=== PATIENT | female | born 1955 | race Hispanic/Latino ===

== ENCOUNTER → 2018-10-20 | Outpatient (CLI) | payer OTHER ==
--- NOTE | 2018-10-20 11:34 | Diagnostic Imaging Report ---
Exam: Pelvic ultrasound - non OB. History: Recurrent UTI. Comparison: None. Findings: Transabdominal sonographic evaluation of the pelvis. The patient is status post hysterectomy. The bilateral ovaries are not visualized. No mass is seen in bilateral adnexa. The bladder is unremarkable in appearance. Bilateral ureteral jets are seen. The prevoid volume is 27.7 cc and the post void residual volume is 0 cc. Impression: Unremarkable sonographic appearance of the bladder. Status post hysterectomy. Signed by: Dr. Era Colindres MD on 10/20/2018 11:30 AM
== END ==
LOC: US 09:15
PROVIDERS: ATTEND Urology
DX: N39.0 Urinary tract infection, site not specified (principal)
CPT/HCPCS: 76856

== ENCOUNTER 2019-04-26 13:24 | Observation (INO) | payer OTHER ==
[~2019-04-26] VITALS: Ht 158.8 cm; Wt 70.3 kg
[~2019-04-26 13:24] MED LIST: ATIVAN1 MG PO; BACLOFEN10 MG PO; FENTANYL1 EAC1 TOP; GABAPENTIN400 MG PO; HYDRALAZINE HCL25 MG PO; ISOSORBIDE MONO20 MG PO; JANUVIA100 MG PO; JARDIANCE PO; METOPROLOL SUCC50 MG PO; NIFEDIPINE10 MG PO; NORCO 10-325 T1 EACH PO; PLAVIX75 MG PO; RENEXA PO; TOUJEO SQ; TRINTELLEX PO
--- OUTSIDE RECORDS SUMMARY | 2019-04-26 13:27 | XMS REPORT ---
Author Author Admin, [place] Organization [facility] Address [address] [place] [address] Phone Allergies, Adverse Reactions, Alerts Allergy Name Reaction Description Start Date Severity Status Provider GORDON NECTAR SOB Critical Active Zayra Shannon D.O. LISINOPRIL (LISINOPRIL TABS) throat swells up and cough Critical Active Zayra Shannon D.O. 12 HOUR NASAL DECONGESTANT Rapid heartbeat Critical Active Zayra Shannon D.O. ANTIHISTAMINES Fast heart beat, trouble breathing 1998 Critical Active Darell Allen MD Conditions or Problems Problem Name Problem Code Onset Date Status Entry Date Provider Comment Standard Description Annotate Arm pain, right 729.5 Active Zayra Damon.O. Pain in limb Knee pain, right, acute 719.46 Active Zayra Damon.O. Pain in joint involving lower leg Hiatal hernia 553.3 Active Zayra Damon.O. Diaphragmatic hernia without mention of obstruction or gangrene Flu 487.1 Active Darell Allen MD Influenza with other respiratory manifestations Hemoccult positive stool 578.1 Active Zayra Daomn.O. Blood in stool Somatic dysfunction, abdomen/other 739.9 Active Zayra Damon.O. Nonallopathic lesions of abdomen and other sites, not elsewhere classified Somatic dysfunction, cranial 739.0 Active Zayra Damon.O. Nonallopathic lesions of head region, not elsewhere classified Somatic dysfunction, spine, thoracic 739.2 Active Zayra Shannon D.O. Nonallopathic lesions of thoracic region, not elsewhere classified Urinary frequency 788.41 Active Zayra Shannon D.O. Urinary frequency Urinary hesitancy 788.64 Active Zayra Shannon D.O. Urinary hesitancy Abdominal pain, generalized 789.07 Active Zayra Shannon D.O. Abdominal pain, generalized Colon cancer screening V76.51 Active Zayra Shannon D.O. Screening for malignant neoplasms of colon Dysuria 788.1 Active Zayra Shannon D.O. Dysuria Cough 786.2 Active Darell Allen MD Cough Overweight Active Darell Allen MD Overweight Sinusitis 473.9 Active Darell Allen MD Unspecified sinusitis (chronic) Pharyngitis, acute 462 Active Zayra Shannon D.O. Acute pharyngitis Screening, colon cancer V76.51 Active Zayra Shannon D.O. Screening for malignant neoplasms of colon Viral syndrome 079.99 Active Zayra Shannon D.O. Unspecified viral infection Dysuria 788.1 Active Cecily Guerra [employer] COVER CEMENTER Dysuria Somatic dysfunction, spine, sacral 739.4 Active Zayra Shannon D.O. Nonallopathic lesions of sacral region, not elsewhere classified Cough 786.2 Active Zayra Shannon D.O. Cough Muscle spasm of back 724.8 Active Zayra Shannon D.O. Other symptoms referable to back Somatic dysfunction, lower extremity 739.6 Active Zayra aDmon.O. Nonallopathic lesions of lower extremities, not elsewhere classified Somatic dysfunction, pelvic 739.5 Active Zayra Damon.O. Nonallopathic lesions of pelvic region, not elsewhere classified Somatic dysfunction, spine, lumbar 739.3 Active Zayra Damon.O. Nonallopathic lesions of lumbar region, not elsewhere classified BMI 28.0-28.9 V85.24 Active Zayra Damon.O. Body Mass Index 28.0-28.9, adult Headache 784.0 Active Darell Allen MD Headache Osteoarthritis, knees, bilateral 715.96 Active Zayra Damon.O. Osteoarthrosis, unspecified whether generalized or localized, involving lower leg Gastroparesis diabeticorum 250.60 Active Zayra Damon.O. Diabetes mellitus with neurological manifestations, type II or unspecified type, not stated as uncontrolled Glaucoma 365.9 Active Zayra Damon.O. Unspecified glaucoma ALLERGIC RHINITIS 477.9 Active Zayra Damon.O. Allergic rhinitis, cause unspecified Angina, chronic 413.9 Active Zayra Damon.O. Other and unspecified angina pectoris At risk for falls V15.88 Active Zayra Damon.O. Personal history of fall has frequent falls from bed, especially when has nightmares Meralgia paresthetica, left leg 355.1 Active Zayra Damon.O. Meralgia paresthetica on gabapentin; this will help for this also Memory loss 780.93 Active Zayra Damon.O. Memory loss Depression 311 Active Neeraj Reed TECHNOLOGY ADMINISTRATOR Depressive disorder, not elsewhere classified CHRONIC BACK PAIN 724.5 Active Zayra Shannon D.O. Backache, unspecified CLAUDICATION, INTERMITTENT 443.9 Active Zayra Shannon D.O. 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 Acquired absence of both cervix and uterus DIABETIC NEUROPATHY 250.60 Active Zayra MooreO. Diabetes mellitus with neurological manifestations, type II or unspecified type, not stated as uncontrolled PULMONARY NODULE 518.89 Active Zayra Damon.O. Other diseases of lung, not elsewhere classified 6 mm nodule Left CVA area CAROTIDYNIA 337.9 Active Darell Allen MD Unspecified disorder of autonomic nervous system FATIGUE 780.79 Active Zayra Shannon D.O. Other malaise and fatigue GERD 530.81 Active Zayra Damon.John. Esophageal reflux ANXIETY 300.00 Active Zayra Shannon D.O. Anxiety state, unspecified DIABETES MELLITUS, TYPE II, WITH COMPLICATIONS 250.80 Active Zayra Damon.O. Diabetes mellitus with other specified manifestations, type II or unspecified type, not stated as uncontrolled History of CVA 434.91 Active Zayra Shannon D.O. Cerebral artery occlusion, unspecified, with cerebral infarction aug 2012, left face numb, was on plavix, seen in [facility] for that, balance problems with left leg HYPERTENSION 401.1 Active Zayra Damon.O. Benign essential hypertension DIABETES MELLITUS 250.00 Correction Zayra Carranzaie D.O. Diabetes mellitus without mention of complication, type II or unspecified type, not stated as uncontrolled Folliculitis ICD-704.8 Inactive Zayra Wise Ehdaie D.O. Neck pain ICD-723.1 Inactive Zayra Troydaie D.O. Muscle spasm of bilateral lower legs ICD-728.85 Inactive Zayra Wise Ehdaie D.O. Fatigue ICD-780.79 Inactive Zayra Wise Ehdaie D.O. Pharyngitis, acute ICD-462 Inactive Zayra Wise Ehdaie D.O. Neck pain 723.1 Inactive Zayra Wise Woodrowdaie D.O. Cervicalgia Neck pain ICD-723.1 Inactive Zayra Wise Ehdaie D.O. PND ICD-786.09 Inactive Zayra Wise Ehdaie D.O. Otitis externa, acute, right ICD-380.12 Inactive Zayra Troydaie D.O. Sinus pain ICD-478.19 Inactive Zayra Troydaie D.O. Laryngitis ICD-464.00 Inactive Zayra Wise Ehdaie D.O. Otitis externa, acute, left ICD-380.12 Inactive Zayra Wise Ehdaie D.O. Pharyngitis, acute ICD-462 Inactive Zayra Troydaie D.O. Screening, colon cancer ICD-V76.51 Inactive Zayra Wise Ehdaie D.O. Bronchitis, acute ICD-466.0 Inactive Zayra Wise Ehdaie D.O. Folliculitis ICD-704.8 Inactive Zayra Wise Ehdaie D.O. Viral pharyngitis ICD-462 Inactive Zayra Wise Ehdaie D.O. Somatic dysfunction, cranial ICD-739.0 Inactive Zayra Wise Ehdaie D.O. Somatic dysfunction, spine, cervical ICD-739.1 Inactive Zayra Troydaie D.O. Somatic dysfunction, upper extremity ICD-739.7 Inactive Zayra Wise Ehdaie D.O. Back pain, lumbar ICD-724.2 Inactive Zayra Wise Ehdaie D.O. Ecchymoses ICD-782.9 Inactive Zayra Wise Ehdaie D.O. Preventive health care ICD-V70.0 Inactive Zayra Wise Ehdaie D.O. BMI 29.0-29.9 Inactive Zayra Wise Ehdaie D.O. Otitis externa, left ICD-380.10 Inactive Zayra Wise Ehdaie D.O. Bronchitis, acute ICD-466.0 Inactive Zayra Wise Ehdaie D.O. Diarrheal stools ICD-787.91 Inactive Zayra Wise Ehdaie D.O. Screening, colon cancer ICD-V76.51 Inactive Zayra Wise Ehdaie D.O. Gastroenteritis, viral ICD-008.8 Inactive Zayra Wise Ehdaie D.O. Viral URI ICD-465.9 Inactive Zayra Wise Ehdaie D.O. Acute lower urinary tract infection ICD-599.0 Inactive Zayra Wise Ehdaie D.O. SOMATIC DYSFUNCTION, LOWER EXTREMITY ICD-739.6 Inactive Zayra Wise Ehdaie D.O. SOMATIC DYSFUNCTION, PELVIC ICD-739.5 Inactive Zayra Wise Ehdaie D.O. SOMATIC DYSFUNCTION, SPINE, LUMBAR ICD-739.3 Inactive Zayra Wise Ehdaie D.O. SOMATIC DYSFUNCTION, SPINE, SACRAL ICD-739.4 Inactive Zayra Wise Ehdaie D.O. CELLULITIS AND ABSCESS OF OTHER SPECIFIED SITE ICD-682.8 Inactive Zayra Billie Ehdaie D.O. HEMATURIA ICD-599.70 Inactive Zayra Wise Ehdaie D.O. LYMPHADENOPATHY ICD-785.6 Inactive Zayra Wise Ehdaie D.O. PHARYNGITIS ICD-462 Inactive Zayra Wise Ehdaie D.O. SCIATICA ICD-724.3 Inactive Zayra Wise Ehdaie D.O. SCREENING, COLON CANCER V76.51 Inactive Zayra M Ehdaie D.O. Screening for malignant neoplasms of colon SCREENING, COLON CANCER ICD-V76.51 Inactive Kevin Ordoñez MD SPECIAL SCREENING EXAMINATION OTH SPEC VIRAL DZ ICD-V73.89 Inactive Zayra Wise Ehdaie D.O. THRUSH ICD-112.0 Inactive Zayra Wise Ehdaie D.O. ANGINA, STABLE ICD-413.9 Inactive Zayra Wise Ehdaie D.O. NEED PROPHYLACTIC VACCINATION&INOCULATION FLU ICD-V04.81 Inactive Zayra Wise Ehdaie D.O. ALLERGIC RHINITIS ICD-477.9 Inactive Zayra Wise Ehdaie D.O. CHEST PAIN ICD-786.50 Inactive Zayra Wise Ehdaie D.O. SOMATIC DYSFUNCTION, ABDOMEN/OTHER ICD-739.9 Inactive Zayra Wise Ehdaie D.O. NECK PAIN, CHRONIC ICD-723.1 Inactive Zayra Wise Ehdaie D.O. CERVICAL DISC DISEASE ICD-722.4 Inactive Zayra Wise Ehdaie D.O. CERVICAL RADICULOPATHY ICD-723.4 Inactive Zayra Wise Ehdaie D.O. LYMPHADENITIS, CERVICAL ICD-683 Inactive Zayra Wise Ehdaie D.O. OVERWEIGHT ICD-278.02 Inactive Zayra Wise Ehdaie D.O. CVA ICD-436 Inactive Zayra Wise Ehdaie D.O. FATIGUE ICD-780.79 Inactive Zayra Wise Ehdaie D.O. FINGER PAIN ICD-729.5 Inactive Zayra Wise Ehdaie D.O. MUSCLE SPASM, BACK ICD-724.8 Inactive Zayra Wise Ehdaie D.O. SOMATIC DYSFUNCTION, SPINE, THORACIC ICD-739.2 Inactive Zayra Wise Ehdaie D.O. VIRAL SYNDROME ICD-079.89 Inactive Zayra Wise Ehdaie D.O. NEED PROPHYLACTIC VACCINATION&INOCULATION FLU ICD-V04.81 Inactive Zayra Wise Ehdaie D.O. SHINGLES ICD-053.9 Inactive Zayra Wise Woodrowdaie D.O. GLAUCOMA ICD-365.9 Inactive Zayra Wise Ehdaie D.O. OTHER SCREENING MAMMOGRAM ICD-V76.12 Inactive Zayra Wise Ehdaie D.O. BACK PAIN ICD-724.5 Inactive Zayra Wise Ehdaie D.O. PALPITATIONS ICD-785.1 Inactive Zayra Wise Ehdaie D.O. ABDOMINAL PAIN ICD-789.00 Inactive Zayra Wise Ehdaie D.O. CHEST WALL PAIN ICD-786.52 Inactive Zayra Wise Ehdaie D.O. Folliculitis 704.8 Resolved Zayra Wise Ehdaie D.O. Other specified diseases of hair and hair follicles Neck pain 723.1 Resolved Zayra Wise Woodrowdaie D.O. Cervicalgia Muscle spasm of bilateral lower legs 728.85 Resolved Zayra Shannon D.O. Spasm of muscle more right buttock Fatigue 780.79 Resolved Zayra Shannon D.O. Other malaise and fatigue Pharyngitis, acute 462 Resolved Zayra Shannon D.O. Acute pharyngitis PND 786.09 Resolved Zayra Shannon D.O. Other dyspnea and respiratory abnormality Otitis externa, acute, right 380.12 Resolved Zayra Shannon D.O. Acute swimmers' ear Sinus pain 478.19 Resolved Zayra Shannon D.O. Other disease of nasal cavity and sinuses Laryngitis 464.00 Resolved Zayra Shannon D.O. Acute laryngitis without mention of obstruction Otitis externa, acute, left 380.12 Resolved Zayra Shannon D.O. Acute swimmers' ear Pharyngitis, acute 462 Resolved Zayra Shannon D.O. Acute pharyngitis Screening, colon cancer V76.51 Resolved Zayra Shannon D.O. Screening for malignant neoplasms of colon Bronchitis, acute 466.0 Resolved Zayra Shannon D.O. Acute bronchitis Folliculitis 704.8 Resolved Zayra Shannon D.O. Other specified diseases of hair and hair follicles Viral pharyngitis 462 Resolved Zayra Troydaluc D.O. Acute pharyngitis Somatic dysfunction, cranial 739.0 Resolved Zayra Shannon D.O. Nonallopathic lesions of head region, not elsewhere classified Somatic dysfunction, spine, cervical 739.1 Resolved Zayra Shannon D.O. Nonallopathic lesions of cervical region, not elsewhere classified Somatic dysfunction, upper extremity 739.7 Resolved Zayra Shannon D.O. Nonallopathic lesions of upper extremities, not elsewhere classified Back pain, lumbar 724.2 Resolved Zayra Shannon D.O. Lumbago Ecchymoses 782.9 Resolved Zayra Shannon D.O. Other symptoms involving skin and integumentary tissues Preventive health care V70.0 Resolved Zayra Shannon D.O. Routine general medical examination at a health care facility BMI 29.0-29.9 Resolved Zayra Shannon D.O. Body Mass Index 29.0-29.9, adult Otitis externa, left 380.10 Resolved Zayra Damon.O. Infective otitis externa, unspecified Bronchitis, acute 466.0 Resolved Zayra Damon.O. Acute bronchitis Diarrheal stools 787.91 Resolved Zayra Shannon D.O. Diarrhea Screening, colon cancer V76.51 Resolved Zayra Shannon D.O. Screening for malignant neoplasms of colon Gastroenteritis, viral 008.8 Resolved Zayra Shannon D.O. Intestinal infection due to other organism, not elsewhere classified Viral URI 465.9 Resolved Zayra Shannon D.O. Acute upper respiratory infections of unspecified site Acute lower urinary tract infection 599.0 Resolved Zayra Shannon D.O. Urinary tract infection, site not specified SOMATIC DYSFUNCTION, LOWER EXTREMITY 739.6 Resolved Zayra Shannon D.O. Nonallopathic lesions of lower extremities, not elsewhere classified SOMATIC DYSFUNCTION, PELVIC 739.5 Resolved Zayra Shannon D.O. Nonallopathic lesions of pelvic region, not elsewhere classified SOMATIC DYSFUNCTION, SPINE, LUMBAR 739.3 Resolved Zayra Shannon D.O. Nonallopathic lesions of lumbar region, not elsewhere classified SOMATIC DYSFUNCTION, SPINE, SACRAL 739.4 Resolved Zayra Shannon D.O. Nonallopathic lesions of sacral region, not elsewhere classified CELLULITIS AND ABSCESS OF OTHER SPECIFIED SITE 682.8 Resolved Zayra Shannon D.O. Cellulitis and abscess of other specified sites labia majora HEMATURIA 599.70 Resolved Zayra Shannon D.O. Hematuria, unspecified LYMPHADENOPATHY 785.6 Resolved Zayra Shannon D.O. Enlargement of lymph nodes left pre-auricular PHARYNGITIS 462 Resolved Zayra Shannon D.O. Acute pharyngitis SCIATICA 724.3 Resolved Zayra Shannon D.O. Sciatica SPECIAL SCREENING EXAMINATION OTH SPEC VIRAL DZ V73.89 Resolved Zayra Shannon D.O. Screening examination for other specified viral diseases THRUSH 112.0 Resolved Zayra Shannon D.O. Candidiasis of mouth left tonsil area pain and throat redness, (had 2 months of nasonex, not currently) ANGINA, STABLE 413.9 Resolved Zayra Shannon D.O. Other and unspecified angina pectoris NEED PROPHYLACTIC VACCINATION&INOCULATION FLU V04.81 Resolved Zayra Shannon D.O. Need for prophylactic vaccination and inoculation against influenza ALLERGIC RHINITIS 477.9 Resolved Zayra Shannon D.O. Allergic rhinitis, cause unspecified CHEST PAIN 786.50 Resolved Zayra Shannon D.O. Unspecified chest pain SOMATIC DYSFUNCTION, ABDOMEN/OTHER 739.9 Resolved Zayra Damon.O. Nonallopathic lesions of abdomen and other sites, not elsewhere classified NECK PAIN, CHRONIC 723.1 Resolved Zayra Damon.O. Cervicalgia Question of CERVICAL DISC DISEASE Resolved Zyara Damon.O. Degeneration of cervical intervertebral disc Question of CERVICAL RADICULOPATHY Resolved Zayra Shannon D.O. Brachial neuritis or radiculitis NOS LYMPHADENITIS, CERVICAL 683 Resolved Zayra Damon.O. Acute lymphadenitis OVERWEIGHT 278.02 Resolved Zayra Damon.O. Overweight CVA 436 Resolved Zayra Damon.O. Acute, but ill- defined, cerebrovascular disease FATIGUE 780.79 Resolved Zayra Shannon D.O. Other malaise and fatigue FINGER PAIN 729.5 Resolved Zayra Damon.O. Pain in limb MUSCLE SPASM, BACK 724.8 Resolved Zayra Damon.O. Other symptoms referable to back SOMATIC DYSFUNCTION, SPINE, THORACIC 739.2 Resolved Zayra Damon.O. Nonallopathic lesions of thoracic region, not elsewhere classified VIRAL SYNDROME 079.89 Resolved Zayra Shannon D.O. Other specified viral infection NEED PROPHYLACTIC VACCINATION&INOCULATION FLU V04.81 Resolved Zayra Damon.O. Need for prophylactic vaccination and inoculation against influenza SHINGLES 053.9 Resolved Zayra Shannon D.O. Herpes zoster without mention of complication GLAUCOMA 365.9 Resolved Zayra Shannon D.O. Unspecified glaucoma left eye and starting in right eye; heredtary optic nerve disease; Dr. Schwab opthamologist in [place], saw her in May 2013 OTHER SCREENING MAMMOGRAM V76.12 Resolved Zayra Shannon D.O. Other screening mammogram BACK PAIN 724.5 Resolved Zayra Shannon D.O. Backache, unspecified PALPITATIONS 785.1 Resolved Zayra Shannon D.O. Palpitations ABDOMINAL PAIN 789.00 Resolved Zayra Shannon D.O. Abdominal pain, unspecified site CHEST WALL PAIN 786.52 Resolved Zayra Shannon D.O. Painful respiration Medication List Medication Instructions Start Date Stop Date Generic Name NDC Status Provider Patient Instruction HYDRALAZINE HCL 25 MG ORAL TABLET 1 By Mouth tid HYDRALAZINE HCL 54925005269 Active Zayra Shannon D.O. Active TESSALON PERLES 100 MG ORAL CAPSULE 1 by mouth 3 times a day as needed for cough BENZONATATE 84681677402 Active Darell Allen MD Active CHERATUSSIN AC 100-10 MG/5ML ORAL SYRUP 2 teaspoons (10mL) by mouth every 12 hours as needed for cough GUAIFENESIN-CODEINE 38069132425 Active Darell Allen MD Active LUMIFY 0.025 % OPHTHALMIC SOLUTION 1 drop in each eye daily for pressure BRIMONIDINE TARTRATE 51328342913 Active Salena Chandler MedAdherence CYLINDER WORKER Active CONTOUR NEXT TEST STRIP CHECK FASTING SUGAR DAILY ; ALSO CHECK SUGAR 2 HRS. AFTER LUNCH AND DINNER GLUCOSE BLOOD 18390266286 Active Maricruz Arambula MedAdherence NEWSPAPER MANAGER Active NIFEDIPINE ER 60 MG ORAL TABLET EXTENDED RELEASE 24 HOUR 1 By Mouth Every day NIFEDIPINE 35993440622 Active Zayra Shannon D.O. Active MUPIROCIN 2 % EXTERNAL OINTMENT apply to bumps twice daily MUPIROCIN 24660213772 Active Zayra Shannon D.O. Active LANCETS check fasting sugar daily; also check sugar 2 hours after lunch and dinner LANCETS 85548740048 Active Zayra Damon.O. Active BACLOFEN 10 MG ORAL TABLET one tablet by mouth three times a day as needed for muscle spasm BACLOFEN 57747775583 Active Zayra Damon.O. Active FENTANYL 25 MCG/HR TRANSDERMAL PATCH 72 HOUR APPLY ONE PATCH UTD Q 72 H FOR CHRONIC PAIN FENTANYL 48548359858 Active Zayra Shannon D.O. Active HYDROCODONE-ACETAMINOPHEN 10-325 MG ORAL TABLET 1 By Mouth Every 4-6 hours as needed for pain HYDROCODONE-ACETAMINOPHEN 65265386023 Active Zayra Shannon D.O. Active TRINTELLIX 20 MG ORAL TABLET 1 By Mouth Every day VORTIOXETINE HBR 59117823748 Active Zayra Shannon D.O. Active CULTURELLE DIGESTIVE HEALTH ORAL CAPSULE 1 By Mouth daily LACTOBACILLUS-INULIN 52596804221 Active Zayra Shannon D.O. Active FLONASE ALLERGY RELIEF 50 MCG/ACT NASAL SUSPENSION 2 sprays each nostril every day FLUTICASONE PROPIONATE 76177439469 Active Zayra Shannon D.O. Active TRAVATAN Z 0.004 % OPHTHALMIC SOLUTION 1 drop per eye at bedtime TRAVOPROST 51138548472 Active Salena Chandler [facility] CYLINDER WORKER Active LIDOCAINE VISCOUS 2 % MOUTH/THROAT SOLUTION 15 mL gargled no more frequently than every 3 hours LIDOCAINE HCL 91863037756 Active Wanda Horn MD Active HOME STYLE BED RAILS please send a set of bedrails out MISC. DEVICES 63978263947 Active Zayra Shannon D.O. Active RANEXA 500 MG ORAL TABLET EXTENDED RELEASE 12 HOUR 1 By Mouth bid RANOLAZINE 40812537391 Active Zayra Shannon D.O. Active VENTOLIN HFA 108 (90 Base) MCG/ACT INHALATION AEROSOL SOLUTION 2 puffs every 4 - 6 hours as needed ALBUTEROL SULFATE 72835037882 Active Zayra Shannon D.O. Active GABAPENTIN 800 MG ORAL TABLET 1 By Mouth tid GABAPENTIN 59755750329 Active Zayra Shannon D.O. Active TOUKEVINO SOLOSTAR 300 UNIT/ML SUBCUTANEOUS SOLUTION PEN-INJECTOR 56 units sq Every hs INSULIN GLARGINE 06317547757 Active Zayra Damon.Kathrine Active METOPROLOL TARTRATE 50 MG ORAL TABLET 1 by mouth twice a day METOPROLOL TARTRATE 73810922899 Active Zayra Damon.O. Active PLAVIX 75 MG ORAL TABLET 1 by mouth every day CLOPIDOGREL BISULFATE 53498566029 Active Zayra Damon.Kathrine Active ISOSORBIDE MONONITRATE ER 60 MG ORAL TABLET EXTENDED RELEASE 24 HOUR Take 1 tablet By Mouth daily ISOSORBIDE MONONITRATE 25984848431 Active Zayra Damon.Kathrine Active LIPITOR 40 MG ORAL TABLET 1 by mouth every pm ATORVASTATIN CALCIUM 43674335279 Active Zayra Damon.John. Active CLOPIDOGREL BISULFATE 75 MG ORAL TABLET one By Mouth Every day CLOPIDOGREL BISULFATE 70701803313 Active Zayra Damon.Kathrine Active ATIVAN 1 MG ORAL TABLET 1 By Mouth as needed LORAZEPAM 30463932881 Active Zayra Damon.Kathrine Active BENZTROPINE MESYLATE 0.5 MG ORAL TABLET 1 By Mouth Every day BENZTROPINE MESYLATE 0.5 MG ORAL TABLET 194217 BENZTROPINE MESYLATE Inactive PROTONIX 40 MG ORAL TABLET DELAYED RELEASE 1 by mouth twice a day PROTONIX 40 MG ORAL TABLET DELAYED RELEASE 725218 PANTOPRAZOLE SODIUM Inactive AUGMENTIN 875-125 MG ORAL TABLET 1 by mouth twice a day AUGMENTIN 875-125 MG ORAL TABLET AMOXICILLIN-POT CLAVULANATE Inactive TAMIFLU 75 MG ORAL CAPSULE 1 By Mouth Twice a Day x 5 days TAMIFLU 75 MG ORAL CAPSULE 670157 OSELTAMIVIR PHOSPHATE Inactive BACTRIM DS 800-160 MG ORAL TABLET 1 tab by mouth twice a day BACTRIM DS 800-160 MG ORAL TABLET 189844 TRIMETHOPRIM-SULFAMETHOXAZOLE Inactive PYRIDIUM 100 MG ORAL TABLET 1 by mouth 3 times a day as needed PYRIDIUM 100 MG ORAL TABLET 0518833 PHENAZOPYRIDINE HCL Inactive TESSALON PERLES 100 MG ORAL CAPSULE 1 by mouth 3 times a day as needed for cough TESSALON PERLES 100 MG ORAL CAPSULE 556033 BENZONATATE Inactive TRINTELLIX 5 MG ORAL TABLET 1 By Mouth Every day TRINTELLIX 5 MG ORAL TABLET VORTIOXETINE HBR Inactive CHOLESTYRAMINE POWDER 4 grams By Mouth Twice a Day CHOLESTYRAMINE POWDER 67714283763 CHOLESTYRAMINE Inactive METHOCARBAMOL 750 MG ORAL TABLET 1 by mouth every 8 hours as needed METHOCARBAMOL 750 MG ORAL TABLET 148928 METHOCARBAMOL Inactive PENICILLIN V POTASSIUM 500 MG ORAL TABLET 1 By Mouth three times a day x 10 days PENICILLIN V POTASSIUM 500 MG ORAL TABLET 379163 PENICILLIN V POTASSIUM Inactive LORATADINE 10 MG ORAL TABLET 1 By Mouth once a day as needed for allergies LORATADINE 10 MG ORAL TABLET 197159 LORATADINE Inactive PREDNISONE 20 MG ORAL TABLET 1 By Mouth daily PREDNISONE 20 MG ORAL TABLET 581151 PREDNISONE Inactive TYLENOL WITH CODEINE #3 300-30 MG ORAL TABLET 1 By Mouth Twice a Day As Needed pain TYLENOL WITH CODEINE #3 300-30 MG ORAL TABLET ACETAMINOPHEN-CODEINE Inactive VOLTAREN 1 % TRANSDERMAL GEL apply twice per day VOLTAREN 1 % TRANSDERMAL GEL 488234 DICLOFENAC SODIUM Inactive AUGMENTIN 875-125 MG ORAL TABLET 1 by mouth twice a day AUGMENTIN 875-125 MG ORAL TABLET AMOXICILLIN-POT CLAVULANATE Inactive [id number] 1 % OTIC SOLUTION 1 drops in affected ear Three Times a Day [id number] 1 % OTIC SOLUTION 949633 GHETSBIC-UBDJRRKMS-HC Inactive BENTYL 10 MG ORAL CAPSULE 1 by mouth 4 times a day as needed BENTYL 10 MG ORAL CAPSULE DICYCLOMINE HCL Inactive NASONEX 50 MCG/ACT NASAL SUSPENSION 2 sprays each nostril every day NASONEX 50 MCG/ACT NASAL SUSPENSION 1569716 MOMETASONE FUROATE Inactive COUGH SYRUP 100 MG/5ML ORAL SYRUP Take 10mL every 4-6 hours as needed for cough COUGH SYRUP 100 MG/5ML ORAL SYRUP 631872 GUAIFENESIN Inactive PROMETHAZINE HCL 6.25 MG/5ML ORAL SYRUP Take 10mL every 4-6 hours as needed PROMETHAZINE HCL 6.25 MG/5ML ORAL SYRUP 367836 PROMETHAZINE HCL Inactive BACTROBAN 2 % EXTERNAL OINTMENT apply twice per day to affected area BACTROBAN 2 % EXTERNAL OINTMENT MUPIROCIN Inactive BABATUNDE CONTOUR NEXT MONITOR w/Device KIT use to check blood sugar Three Times a Day BABATUNDE CONTOUR NEXT MONITOR w/Device KIT BLOOD GLUCOSE MONITORING SUPPL Inactive ANTIPYRINE-BENZOCAINE 5.4-1.4 % OTIC SOLUTION 2-4 drops in the affected ear Three Times a Day As Needed for pain ANTIPYRINE-BENZOCAINE 5.4- 1.4 % OTIC SOLUTION ANTIPYRINE-BENZOCAINE Inactive CIPRO HC 0.2-1 % OTIC SUSPENSION 3 drops tothe left ear Every 12 hours for 7 days CIPRO HC 0.2-1 % OTIC SUSPENSION CIPROFLOXACIN-HYDROCORTISONE Inactive CEFDINIR 300 MG ORAL CAPSULE 1 by mouth Q 12 HOURS CEFDINIR 300 MG ORAL CAPSULE 539027 CEFDINIR Inactive JANUVIA 50 MG ORAL TABLET 1 By Mouth once a day JANUVIA 50 MG ORAL TABLET SITAGLIPTIN PHOSPHATE Inactive CIPRO 500 MG ORAL TABLET 1 by mouth twice a x 7 days CIPRO 500 MG ORAL TABLET 590266 CIPROFLOXACIN HCL Inactive BACTRIM DS 800-160 MG ORAL TABLET 1 tab by mouth twice a day for 7 days for infection BACTRIM DS 800-160 MG ORAL TABLET 588581 TRIMETHOPRIM-SULFAMETHOXAZOLE Inactive MELOXICAM 7.5 MG ORAL TABLET 1 pill by mouth As needed for back pain MELOXICAM 7.5 MG ORAL TABLET 242992 MELOXICAM Inactive NOVOLOG FLEXPEN 100 UNIT/ML SUBCUTANEOUS SOLUTION PEN-INJECTOR 20 units SQ with each meal NOVOLOG FLEXPEN 100 UNIT/ML SUBCUTANEOUS SOLUTION PEN-INJECTOR INSULIN ASPART Inactive LISINOPRIL 20 MG ORAL TABLET 2 pill by mouth Daily LISINOPRIL 20 MG ORAL TABLET 684247 LISINOPRIL Inactive NYSTATIN 685900 UNIT/ML MOUTH/THROAT SUSPENSION 2 mls Three Times a Day swish and spit NYSTATIN 531512 UNIT/ML MOUTH/THROAT SUSPENSION 176609 NYSTATIN Inactive ACARBOSE 50 MG ORAL TABLET one By Mouth Three Times a Day ACARBOSE 50 MG ORAL TABLET 366841 ACARBOSE Inactive NORCO 10-325 MG ORAL TABLET 1 By Mouth TID As Needed pain NORCO 10-325 MG ORAL TABLET 443705 HYDROCODONE-ACETAMINOPHEN Inactive NASONEX 50 MCG/ACT NASAL SUSPENSION 2 sprays each nostril every day NASONEX 50 MCG/ACT NASAL SUSPENSION 8759045 MOMETASONE FUROATE Inactive CYCLOBENZAPRINE HCL 10 MG ORAL TABLET take 1 tablet By Mouth Three Times a Day as needed CYCLOBENZAPRINE HCL 10 MG ORAL TABLET 556458 CYCLOBENZAPRINE HCL Inactive ASPIRIN 81 MG ORAL TABLET take 1 By Mouth daily 30 ASPIRIN 81 MG ORAL TABLET ASPIRIN Inactive INDOMETHACIN 50 MG ORAL CAPSULE take 1 By Mouth Three Times a Day As Needed pain INDOMETHACIN 50 MG ORAL CAPSULE 829327 INDOMETHACIN Inactive KEFLEX 500 MG ORAL CAPSULE take 1 By Mouth Twice a Day for 7 days. KEFLEX 500 MG ORAL CAPSULE 073298 CEPHALEXIN Inactive PRAVACHOL 20 MG ORAL TABLET take 1 By Mouth daily PRAVACHOL 20 MG ORAL TABLET 163447 PRAVASTATIN SODIUM Inactive HYDROCHLOROTHIAZIDE 12.5 MG ORAL CAPSULE 1 by mouth every day HYDROCHLOROTHIAZIDE 12.5 MG ORAL CAPSULE 298457 HYDROCHLOROTHIAZIDE Inactive BACLOFEN 10 MG ORAL TABLET one tablet by mouth three times a day as needed for muscle spasm BACLOFEN 10 MG ORAL TABLET 089644 BACLOFEN Inactive BUSPIRONE HCL 15 MG ORAL TABLET 1 by mouth twice a day BUSPIRONE HCL 15 MG ORAL TABLET 721364 BUSPIRONE HCL Inactive PREVACID 30 MG ORAL CAPSULE DELAYED RELEASE 1 by mouth every day PREVACID 30 MG ORAL CAPSULE DELAYED RELEASE 720707 LANSOPRAZOLE Inactive ZITHROMAX 250 MG ORAL TABLET 2 by mouth now, then 1 by mouth every day for 4 more days ZITHROMAX 250 MG ORAL TABLET 162383 AZITHROMYCIN Inactive ACYCLOVIR 800 MG ORAL TABLET 1 by mouth five times a day x 7 days ACYCLOVIR 800 MG ORAL TABLET 980050 ACYCLOVIR Inactive ISOSORBIDE MONONITRATE 10 MG ORAL TABLET 1 By Mouth Every hs ISOSORBIDE MONONITRATE 10 MG ORAL TABLET 647178 ISOSORBIDE MONONITRATE Inactive PAXIL CR 25 MG ORAL TABLET EXTENDED RELEASE 24 HOUR 1 By Mouth Every day PAXIL CR 25 MG ORAL TABLET EXTENDED RELEASE 24 HOUR PAROXETINE HCL Inactive METFORMIN HCL 1000 MG ORAL TABLET 1 by mouth twice a day METFORMIN HCL 1000 MG ORAL TABLET 869411 METFORMIN HCL Inactive LORTAB 5-500 MG ORAL TABLET LORTAB 5-500 MG ORAL TABLET HYDROCODONE-ACETAMINOPHEN Inactive PAXIL 30 MG ORAL TABLET TK 1 T PO QAM PAXIL 30 MG ORAL TABLET 9029047 PAROXETINE HCL Inactive BENZTROPINE MESYLATE 0.5 MG ORAL TABLET 1 By Mouth Every day BENZTROPINE MESYLATE 33166435129 No Longer Active Zayra Shannon D.O. Active PROTONIX 40 MG ORAL TABLET DELAYED RELEASE 1 by mouth twice a day PANTOPRAZOLE SODIUM 47692713026 No Longer Active Zayra Shannon D.O. Active AUGMENTIN 875-125 MG ORAL TABLET 1 by mouth twice a day AMOXICILLIN-POT CLAVULANATE 70771310406 No Longer Active Zayra Shannon D.O. Active TAMIFLU 75 MG ORAL CAPSULE 1 By Mouth Twice a Day x 5 days OSELTAMIVIR PHOSPHATE 31885660459 No Longer Active Zayra Shannon D.O. Active BACTRIM DS 800-160 MG ORAL TABLET 1 tab by mouth twice a day TRIMETHOPRIM-SULFAMETHOXAZOLE 85600259469 No Longer Active Zayra Shannon D.O. Active PYRIDIUM 100 MG ORAL TABLET 1 by mouth 3 times a day as needed PHENAZOPYRIDINE HCL 98112685163 No Longer Active Zayra Damon.O. Active TESSALON PERLES 100 MG ORAL CAPSULE 1 by mouth 3 times a day as needed for cough BENZONATATE 78766419208 No Longer Active Zayra Shannon D.O. Active LUMIFY 1 drop in each eye daily for pressure LUMIFY No Longer Active Zayra Shannon D.O. Active TRINTELLIX 5 MG ORAL TABLET 1 By Mouth Every day VORTIOXETINE HBR 32245833569 No Longer Active Zayra Shannon D.O. Active CHOLESTYRAMINE POWDER 4 grams By Mouth Twice a Day CHOLESTYRAMINE 17303167866 No Longer Active Zayra Shannon D.O. Active WELCHOL 625 MG ORAL TABLET 3 tabs By Mouth twice a day with food COLESEVELAM HCL 47414521596 No Longer Active Zayra Troydaluc D.O. Active METHOCARBAMOL 750 MG ORAL TABLET 1 by mouth every 8 hours as needed METHOCARBAMOL 42581583645 No Longer Active Zayra Billie Troydaie D.O. Active PENICILLIN V POTASSIUM 500 MG ORAL TABLET 1 By Mouth three times a day x 10 days PENICILLIN V POTASSIUM 55263730776 No Longer Active Zayra Billie Troydaie D.O. Active LORATADINE 10 MG ORAL TABLET 1 By Mouth once a day as needed for allergies LORATADINE 76102868058 No Longer Active Zayra Shannon D.O. Active PREDNISONE 20 MG ORAL TABLET 1 By Mouth daily PREDNISONE 97123657946 No Longer Active Zayra Troydaie D.O. Active TYLENOL WITH CODEINE #3 300-30 MG ORAL TABLET 1 By Mouth Twice a Day As Needed pain ACETAMINOPHEN-CODEINE 67865934808 No Longer Active Zayra Troydaie D.O. Active VOLTAREN 1 % TRANSDERMAL GEL apply twice per day DICLOFENAC SODIUM 84349317190 No Longer Active Zayra Troydaie D.O. Active AUGMENTIN 875-125 MG ORAL TABLET 1 by mouth twice a day AMOXICILLIN-POT CLAVULANATE 77310784383 No Longer Active Zayra Troydaluc D.O. Active [id number] 1 % OTIC SOLUTION 1 drops in affected ear Three Times a Day [id number] 41698745158 No Longer Active Zayra Troydaie D.O. Active BENTYL 10 MG ORAL CAPSULE 1 by mouth 4 times a day as needed DICYCLOMINE HCL 52738455759 No Longer Active Zayra Billie Troydaie D.O. Active NASONEX 50 MCG/ACT NASAL SUSPENSION 2 sprays each nostril every day MOMETASONE FUROATE 86732941151 No Longer Active Zayra M Ehdaie D.O. Active COUGH SYRUP 100 MG/5ML ORAL SYRUP Take 10mL every 4-6 hours as needed for cough GUAIFENESIN 75075665385 No Longer Active Zayra Damon.Kathrine Active PROMETHAZINE HCL 6.25 MG/5ML ORAL SYRUP Take 10mL every 4-6 hours as needed PROMETHAZINE HCL 68594112796 No Longer Active Zayra Shannon D.O. Active BACTROBAN 2 % EXTERNAL OINTMENT apply twice per day to affected area MUPIROCIN 77821324941 No Longer Active Zayra Shannon D.O. Active 2080 Media NEXT MONITOR w/Device KIT use to check blood sugar Three Times a Day BLOOD GLUCOSE MONITORING SUPPL 69726458145 No Longer Active Zayra Shannon D.O. Active ANTIPYRINE-BENZOCAINE 5.4-1.4 % OTIC SOLUTION 2-4 drops in the affected ear Three Times a Day As Needed for pain ANTIPYRINE-BENZOCAINE 29870923810 No Longer Active Wanda Horn MD Active CIPRO HC 0.2-1 % OTIC SUSPENSION 3 drops tothe left ear Every 12 hours for 7 days CIPROFLOXACIN-HYDROCORTISONE 04512888040 No Longer Active Azucena Harden MD Active CEFDINIR 300 MG ORAL CAPSULE 1 by mouth Q 12 HOURS CEFDINIR 96677885875 No Longer Active Wanda Horn MD Active JANUVIA 50 MG ORAL TABLET 1 By Mouth once a day SITAGLIPTIN PHOSPHATE 22579598854 No Longer Active Zayra Damon.Kathrine Active CIPRO 500 MG ORAL TABLET 1 by mouth twice a x 7 days CIPROFLOXACIN HCL 70578418003 No Longer Active Zayra Damon.OJay Active BACTRIM DS 800-160 MG ORAL TABLET 1 tab by mouth twice a day for 7 days for infection TRIMETHOPRIM-SULFAMETHOXAZOLE 00317829197 No Longer Active Tanna Parekh MD Active MELOXICAM 7.5 MG ORAL TABLET 1 pill by mouth As needed for back pain MELOXICAM 47208914325 No Longer Active Zayra Shannon D.O. Active NOVOLOG FLEXPEN 100 UNIT/ML SUBCUTANEOUS SOLUTION PEN-INJECTOR 20 units SQ with each meal INSULIN ASPART 90196723741 No Longer Active Zayra Shannon D.O. Active LISINOPRIL 20 MG ORAL TABLET 2 pill by mouth Daily LISINOPRIL 90586508677 No Longer Active Zayra Damon.O. Active NYSTATIN 403861 UNIT/ML MOUTH/THROAT SUSPENSION 2 mls Three Times a Day swish and spit NYSTATIN 21090580076 No Longer Active Zayra Shannon D.O. Active ACARBOSE 50 MG ORAL TABLET one By Mouth Three Times a Day ACARBOSE 95337251847 No Longer Active Zayra Shannon D.O. Active NORCO 10-325 MG ORAL TABLET 1 By Mouth TID As Needed pain HYDROCODONE-ACETAMINOPHEN 95180695454 No Longer Active Zayra Shannon D.O. Active NASONEX 50 MCG/ACT NASAL SUSPENSION 2 sprays each nostril every day MOMETASONE FUROATE 07998206720 No Longer Active Zayra Damon.O. Active CYCLOBENZAPRINE HCL 10 MG ORAL TABLET take 1 tablet By Mouth Three Times a Day as needed CYCLOBENZAPRINE HCL 67027915377 No Longer Active Zayra Damon.O. Active ASPIRIN 81 MG ORAL TABLET take 1 By Mouth daily 30 ASPIRIN 22635989411 No Longer Active Zayra Shannon D.O. Active INDOMETHACIN 50 MG ORAL CAPSULE take 1 By Mouth Three Times a Day As Needed pain INDOMETHACIN 10546971776 No Longer Active Zayra Shannon D.O. Active KEFLEX 500 MG ORAL CAPSULE take 1 By Mouth Twice a Day for 7 days. CEPHALEXIN 10985227771 No Longer Active Jorge L Ramos DO Active PRAVACHOL 20 MG ORAL TABLET take 1 By Mouth daily PRAVASTATIN SODIUM 52050235010 No Longer Active Zayra Shannon D.O. Active HYDROCHLOROTHIAZIDE 12.5 MG ORAL CAPSULE 1 by mouth every day HYDROCHLOROTHIAZIDE 75809613844 No Longer Active Zayra Shannon D.O. Active BACLOFEN 10 MG ORAL TABLET one tablet by mouth three times a day as needed for muscle spasm BACLOFEN 34575958921 No Longer Active Zayra Shannon D.O. Active BUSPIRONE HCL 15 MG ORAL TABLET 1 by mouth twice a day BUSPIRONE HCL 07222338563 No Longer Active Zayra Shannon D.O. Active PREVACID 30 MG ORAL CAPSULE DELAYED RELEASE 1 by mouth every day LANSOPRAZOLE 41995553958 No Longer Active Zayra Shannon D.O. Active ZITHROMAX 250 MG ORAL TABLET 2 by mouth now, then 1 by mouth every day for 4 more days AZITHROMYCIN 31317337735 No Longer Active Zayra Shannon D.O. Active ACYCLOVIR 800 MG ORAL TABLET 1 by mouth five times a day x 7 days ACYCLOVIR 03160711900 No Longer Active Zayra Troydaluc D.O. Active ISOSORBIDE MONONITRATE 10 MG ORAL TABLET 1 By Mouth Every hs ISOSORBIDE MONONITRATE 71150229805 No Longer Active Nolvia Toney MD Active PAXIL CR 25 MG ORAL TABLET EXTENDED RELEASE 24 HOUR 1 By Mouth Every day PAROXETINE HCL 98755226225 No Longer Active Zayra Shannon D.O. Active METFORMIN HCL 1000 MG ORAL TABLET 1 by mouth twice a day METFORMIN HCL 18043683625 No Longer Active Zayra Shannon D.O. Active LORTAB 5-500 MG ORAL TABLET HYDROCODONE-ACETAMINOPHEN 40956650866 No Longer Active Zayra Shannon D.O. Active PAXIL 30 MG ORAL TABLET TK 1 T PO QAM PAROXETINE HCL 42090551951 No Longer Active Zayra Shannon D.O. Active Immunizations Vaccine Administration Date Value Standard Description influenza immunization (Flu Vax) has been administered given influenza virus vaccine, unspecified formulation pneumococcal immunization administered given pneumococcal polysaccharide vaccine, 23 valent influenza immunization (Flu Vax) has been administered given influenza virus vaccine, unspecified formulation influenza immunization (Flu Vax) has been administered given influenza virus vaccine, unspecified formulation PEDIATRIC PNEUMOCOCCAL VACCINE ([id number]) #1 given pneumococcal conjugate vaccine, 13 valent influenza immunization (Flu Vax) has been administered given influenza virus vaccine, unspecified formulation influenza immunization (Flu Vax) has been administered given influenza virus vaccine, unspecified formulation Vital Signs Date Name Value Unit Range Description blood pressure, diastolic 70 mm[Hg] BP ellison blood pressure, systolic 119 mm[Hg] BP sys height E&M 62 [in_us] Bdy height pulse rate E&M 64 /min Heart rate respiratory rate E&M 24 /min Resp rate temperature E&M 99.2 [degF] Body temperature weight E&M 155.20 [lb_av] Weight Measured blood pressure, diastolic 81 mm[Hg] BP ellison blood pressure, systolic 136 mm[Hg] BP sys height E&M 62 [in_us] Bdy height pulse rate E&M 56 /min Heart rate respiratory rate E&M 18 /min Resp rate temperature E&M 98.1 [degF] Body temperature weight E&M 158.60 [lb_av] Weight Measured blood pressure, diastolic, second observation 78 mm[Hg] BP ellison blood pressure, diastolic 78 mm[Hg] BP ellison blood pressure, systolic, second observation 130 mm[Hg] BP sys blood pressure, systolic 130 mm[Hg] BP sys height E&M 62 [in_us] Bdy height pulse rate E&M 54 /min Heart rate respiratory rate E&M 12 /min Resp rate temperature E&M 97.9 [degF] Body temperature weight E&M 163 [lb_av] Weight Measured blood pressure, diastolic 84 mm[Hg] BP ellison blood pressure, systolic 149 mm[Hg] BP sys height E&M 62 [in_us] Bdy height pulse rate E&M 64 /min Heart rate respiratory rate E&M 18 /min Resp rate temperature E&M 97.8 [degF] Body temperature weight E&M 161.80 [lb_av] Weight Measured blood pressure, diastolic 82 mm[Hg] BP ellison blood pressure, systolic 152 mm[Hg] BP sys height E&M 62 [in_us] Bdy height pulse rate E&M 77 /min Heart rate respiratory rate E&M 17 /min Resp rate temperature E&M 100.2 [degF] Body temperature weight E&M 167.20 [lb_av] Weight Measured blood pressure, diastolic 71 mm[Hg] BP ellison blood pressure, systolic 113 mm[Hg] BP sys height E&M 62 [in_us] Bdy height pulse rate E&M 60 /min Heart rate respiratory rate E&M 17 /min Resp rate temperature E&M 98.3 [degF] Body temperature weight E&M 163 [lb_av] Weight Measured blood pressure, diastolic, second observation 87 mm[Hg] BP ellison blood pressure, diastolic 87 mm[Hg] BP ellison blood pressure, systolic, second observation 139 mm[Hg] BP sys blood pressure, systolic 139 mm[Hg] BP sys height E&M 62 [in_us] Bdy height pulse rate E&M 60 /min Heart rate respiratory rate E&M 16 /min Resp rate temperature E&M 98.1 [degF] Body temperature weight E&M 160.50 [lb_av] Weight Measured blood pressure, diastolic 66 mm[Hg] BP ellison blood pressure, systolic 107 mm[Hg] BP sys height E&M 62 [in_us] Bdy height pulse rate E&M 65 /min Heart rate respiratory rate E&M 16 /min Resp rate temperature E&M 98.2 [degF] Body temperature weight E&M 160.60 [lb_av] Weight Measured blood pressure, diastolic 95 mm[Hg] BP ellison blood pressure, systolic 182 mm[Hg] BP sys height E&M 62 [in_us] Bdy height pulse rate E&M 61 /min Heart rate respiratory rate E&M 20 /min Resp rate temperature E&M 98.8 [degF] Body temperature weight E&M 161 [lb_av] Weight Measured blood pressure, diastolic 75 mm[Hg] BP ellison blood pressure, systolic 141 mm[Hg] BP sys height E&M 62 [in_us] Bdy height pulse rate E&M 61 /min Heart rate respiratory rate E&M 16 /min Resp rate temperature E&M 97.7 [degF] Body temperature weight E&M 159 [lb_av] Weight Measured blood pressure, diastolic 96 mm[Hg] BP ellison blood pressure, systolic 155 mm[Hg] BP sys height E&M 62 [in_us] Bdy height pulse rate E&M 64 /min Heart rate respiratory rate E&M 18 /min Resp rate temperature E&M 98.4 [degF] Body temperature weight E&M 161 [lb_av] Weight Measured blood pressure, diastolic, second observation 89 mm[Hg] BP ellison blood pressure, diastolic 89 mm[Hg] BP ellison blood pressure, systolic, second observation 153 mm[Hg] BP sys blood pressure, systolic 153 mm[Hg] BP sys height E&M 62 [in_us] Bdy height pulse rate E&M 61 /min Heart rate respiratory rate E&M 16 /min Resp rate temperature E&M 98.4 [degF] Body temperature weight E&M 160 [lb_av] Weight Measured blood pressure, diastolic, second observation 59 mm[Hg] BP ellison blood pressure, diastolic 82 mm[Hg] BP ellison blood pressure, systolic, second observation 133 mm[Hg] BP sys blood pressure, systolic 143 mm[Hg] BP sys height E&M 62 [in_us] Bdy height pulse rate E&M 57 /min Heart rate respiratory rate E&M 16 /min Resp rate temperature E&M 98.1 [degF] Body temperature weight E&M 159.50 [lb_av] Weight Measured Diagnostic Results Date Name Value Unit Range Description Lab Report: UA/M w/rflx Culture, Routine, Microscopic Examination, UA/M ... - Urinalysis mucus on urinalysis Present Not Estab. Lab Report: TSH+Free T4, CBC With Differential/Platelet, Comp. Metabolic ... - Chemistry thyroid stimulating hormone, serum 1.240 u[iU]/mL 0.450-4.500 Lab Report: UA/M w/rflx Culture, Routine, Microscopic Examination, UA/M ... - Urinalysis WBC urine on microscopy 0-5 /hpf {Cells}/[HPF] 0 - 5 Lab Report: Anaerobic and Aerobic Culture, Result, Anaerobic and Aerobic ... - Chemistry Culture, Anaerobic Final report Lab Report: TSH+Free T4, CBC With Differential/Platelet, Comp. Metabolic ... - Chemistry very low density lipoproteins 40 mg/dL 5-40 Lab Report: UA/M w/rflx Culture, Routine, Microscopic Examination, UA/M ... - Urinalysis epithelial cells, urine 0-10 /[LPF] 0 - 10 Lab Report: TSH+Free T4, CBC With Differential/Platelet, Comp. Metabolic ... - Chemistry chloride, serum 102 mmol/L 96-106 Lab Report: CBC With Differential/Platelet, Comp. Metabolic Panel (14), ... - Chemistry triiodothyronine resin uptake 28 % 24-39 Lab Report: TSH+Free T4, CBC With Differential/Platelet, Comp. Metabolic ... - Chemistry urea nitrogen, blood 23 mg/dL 8-27 Lab Report: CBC With Differential/Platelet, Basic Metabolic Panel (8), P ... - Serology HIV-1/HIV-2 Ab, serum Non Reactive Non Reactive Office Visit: Acute Visit Rm5 - Urinalysis leukocyte esterase, urine, by dipstick negative Lab Report: TSH+Free T4, CBC With Differential/Platelet, Comp. Metabolic ... - Hematology mean corpuscular hemoglobin concentration, RBC 34.0 G/DL % 31.5-35.7 Office Visit: Acute Visit Rm5 - Urinalysis nitrite, urine, semiquantitative negative Lab Report: TSH+Free T4, CBC With Differential/Platelet, Comp. Metabolic ... - Hematology erythrocyte (RBC) count 4.54 X10E6/UL 10*6/mm3 3.77-5.28 Lab Report: CBC With Differential/Platelet, Basic Metabolic Panel (8), P ... - Serology hepatitis C antibody, serum <0.1 0.0-0.9 Office Visit: Acute Visit Rm5 - Urinalysis urine color yellow bilirubin, urine negative Lab Report: TSH+Free T4, CBC With Differential/Platelet, Comp. Metabolic ... - Chemistry Absolute Neutrophils 5.9 X10E3/UL 10*3/uL 1.4-7.0 Lab Report: CBC With Differential[facility]Platelet, [facility] erythrocyte sedimentation rate 4 mm/h 0-40 Lab Report: TSH+Free T4, CBC With Differential/Platelet, Comp. Metabolic ... - Chemistry LDL cholesterol, serum 98 mg/dL 0-99 urea nitrogen/creatinine ratio, serum 47 12-28 Internal Correspondence: Pre-Visit Planning - CC care steamer tender #1, name Azucena Babin Lab Report: TSH+Free T4, CBC With Differential/Platelet, Comp. Metabolic ... - Hematology mean corpuscular volume, RBC 94 fL 79-97 Lab Report: TSH+Free T4, CBC With Differential/Platelet, Comp. Metabolic ... - Chemistry HDL cholesterol, serum 39 mg/dL >39 Lab Report: TSH+Free T4, CBC With Differential/Platelet, Comp. Metabolic ... - Hematology monocytes as percent of blood leukocytes 7 % Lab Report: TSH+Free T4, CBC With Differential/Platelet, Comp. Metabolic ... - Chemistry creatinine, serum 0.49 mg/dL 0.57-1.00 albumin/globulin ratio, serum 1.5 1.2-2.2 cholesterol, serum 177 mg/dL 085-999 7383/08/07 creatinine, random, urine 90.0 mg/dL Not Estab. bilirubin, serum, total 0.6 mg/dL 0.0-1.2 Lab Report: TSH+Free T4, CBC With Differential/Platelet, Comp. Metabolic ... - Hematology Eosinophil Absolute Count 0.1 X10E3/UL 10*3/uL 0.0-0.4 Lab Report: H. pylori Stool Ag, EIA - Microbiology Helicobacter pylori antigen, stool Negative Negative Office Visit: Acute Visit Rm5 - Urinalysis appearance, urine clear blood in urine (hemoglobin) by dipstick negative Lab Report: TSH+Free T4, CBC With Differential/Platelet, Comp. Metabolic ... - Chemistry aspartate aminotransferase (SGOT), serum 16 U/L 0-40 Lab Report: TSH+Free T4, CBC With Differential/Platelet, Comp. Metabolic ... - Hematology red blood cell distribution width 13.8 % 12.3-15.4 Lab Report: UA/M w/rflx Culture, Routine, Microscopic Examination, UA/M ... - Urinalysis urinalysis, microscopic examination MICRON Office Visit: Acute Visit Rm5 - Urinalysis pH, urine, semiquantitative 5.0 Lab Report: TSH+Free T4, CBC With Differential/Platelet, Comp. Metabolic ... - Hematology leukocyte count, blood 8.3 X10E3/UL 10*3/mm3 3.4-10.8 Lab Report: TSH+Free T4, CBC With Differential/Platelet, Comp. Metabolic ... - Chemistry potassium, serum 4.1 mmol/L 3.5-5.2 albumin, serum 4.1 g/dL 3.6-4.8 immature granulocytes, percentage of total cells, blood 0 % Lab Report: TSH+Free T4, CBC With Differential/Platelet, Comp. Metabolic ... - Hematology lymphocyte count, blood, automated 1.7 X10E3/UL 10*3/mm3 0.7-3.1 hematocrit, blood 42.7 % 34.0-46.6 Lab Report: Urine Culture, Routine, Result - Urinalysis urine culture No growth Lab Report: TSH+Free T4, CBC With Differential/Platelet, Comp. Metabolic ... - Chemistry sodium, serum 143 mmol/L 134-144 Lab Report: TSH+Free T4, CBC With Differential/Platelet, Comp. Metabolic ... - Hematology neutrophils as percent of blood leukocytes 72 % Internal Correspondence: Pre-Visit Planning - Other List of providers caring for patient Dr. Shannon, Azucena Babin and Kaylen Neil Lab Report: TSH+Free T4, CBC With Differential/Platelet, Comp. Metabolic ... - Hematology basophils as percent of blood leukocytes 0 % Lab Report: UA/M w/rflx Culture, Routine, Microscopic Examination, UA/M ... - Chemistry specific gravity, body fluid 1.014 1.005-1.030 Office Visit: Acute Visit #6-[facility] - Serology influenza virus A antigen positive Office Visit: Acute Visit Rm5 - Urinalysis protein, urine, semiquantitative (dipstick) negative Lab Report: UA/M w/rflx Culture, Routine, Microscopic Examination, UA/M ... - Chemistry RBC, Urine 0-2 /hpf /[HPF] 0 - 2 Lab Report: UA/M w/rflx Culture, Routine, Microscopic Examination, UA/M ... - Microbiology microscopic exam See below: Lab Report: TSH+Free T4, CBC With Differential/Platelet, Comp. Metabolic ... - Chemistry carbon dioxide, venous blood 26 mmol/L 18-29 Lab Report: UA/M w/rflx Culture, Routine, Microscopic Examination, UA/M ... - Chemistry nitrate, urine Negative Negative Lab Report: TSH+Free T4, CBC With Differential/Platelet, Comp. Metabolic ... - Chemistry triglyceride, serum, fasting 201 mg/dL 0-149 calcium, serum 8.9 mg/dL 8.7-10.3 microalbumin/creatinine ratio, urine 12.9 MG/G CREAT ug/mg 0.0-30.0 alanine aminotransferase (SGPT), serum 25 U/L 0-32 Lab Report: CBC With Differential/Platelet, Comp. Metabolic Panel (14), ... - Chemistry free thyroxine index 1.3 1.2-4.9 Office Visit: Adult Followup Rachele Shannon 6 - Chemistry blood glucose, fasting 162 mg/dL Lab Report: TSH+Free T4, CBC With Differential/Platelet, Comp. Metabolic ... - Hematology mean corpuscular hemoglobin, RBC 31.9 pg 26.6-33.0 Office Visit: Acute Visit Rm5 - Urinalysis specific gravity, urine 1.015 Lab Report: UA/M w/rflx Culture, Routine, Microscopic Examination, UA/M ... - Urinalysis bacteria, urine microscopy None seen None seen/Few Lab Report: CBC With Differential/Platelet, Basic Metabolic Panel (8), P ... - Chemistry lipase, serum 14 U/L [iU]/L 0-59 Lab Report: TSH+Free T4, CBC With Differential/Platelet, Comp. Metabolic ... - Chemistry protein, total, serum 6.9 g/dL 6.0-8.5 alkaline phosphatase, serum 68 U/L 39-117 Office Visit: Acute Visit Dr. Shannon - Lab Microbial identification kit, rapid strep method negative Lab Report: TSH+Free T4, CBC With Differential/Platelet, Comp. Metabolic ... - Hematology hemoglobin, blood 14.5 g/dL 11.1-15.9 Office Visit: Adult Followup Dr Shiva White 6 - Chemistry blood glucose, 2 hours postprandial 129 mg/dL Lab Report: TSH+Free T4, CBC With Differential/Platelet, Comp. Metabolic ... - Hematology lymphocytes as percent of blood leukocytes 20 % Office Visit: Adult Followup Dr Shannon 7 - Chemistry hemoglobin A1C, blood, as % of total hemoglobin 7.9 % Office Visit: Acute Visit Rm5 - Urinalysis glucose, urine, semiquantitative negative Lab Report: TSH+Free T4, CBC With Differential/Platelet, Comp. Metabolic ... - Genetics/fertility eGFR if 122 mL/min/1.73m2 >59 Lab Report: TSH+Free T4, CBC With Differential/Platelet, Comp. Metabolic ... - Chemistry thyroxine, serum, free 0.96 ng/dL 0.82-1.77 Lab Report: TSH+Free T4, CBC With Differential/Platelet, Comp. Metabolic ... - Hematology basophil count, absolute 0.0 x10E3/uL 0.0-0.2 Lab Report: TSH+Free T4, CBC With Differential/Platelet, Comp. Metabolic ... - Chemistry globulin, serum 2.8 1.5-4.5 Estimated Glomerular Filtration Rate (calc) 105 mL/min/1.73m2 >59 Lab Report: UA/M w/rflx Culture, Routine, Microscopic Examination, UA/M ... - Basic Occult Blood, urine Negative Negative Lab Report: CBC With Differential/Platelet, Comp. Metabolic Panel (14), ... - Chemistry thyroxine, serum, total 4.7 ug/dL 4.5-12.0 Lab Report: TSH+Free T4, CBC With Differential/Platelet, Comp. Metabolic ... - Urinalysis microalbumin/total urine volume 11.6 mg/L Not Estab. Lab Report: TSH+Free T4, CBC With Differential/Platelet, Comp. Metabolic ... - Hematology eosinophils as percent of blood leukocytes 1 % Office Visit: Adult Acute Dr. Shannon - Chemistry blood glucose, random 131 mg/dL Office Visit: Acute Visit 5 - Urinalysis urobilinogen, urine, semiquantitative (dipstick) 0.2 Lab Report: CBC With Differential/Platelet, Basic Metabolic Panel (8), P ... - Chemistry amylase, serum 32 U/L 31-124 Lab Report: TSH+Free T4, CBC With Differential/Platelet, Comp. Metabolic ... - Hematology monocyte count, blood, automated 0.6 X10E3/UL 10*3/uL 0.1-0.9 Lab Report: Anaerobic and Aerobic Culture, Result, Anaerobic and Aerobic ... - Lab Aerobic culture Final report Office Visit: Acute Visit Rm5 - Urinalysis ketones, urine, by test strip negative Lab Report: TSH+Free T4, CBC With Differential/Platelet, Comp. Metabolic ... - Hematology platelet count 175 X10E3/UL 10*3/mm3 150-379 Office Visit: Acute Visit #6-[place]en - Lab influenza B virus antigen negative Encounters Date Encounter Provider Code Facility 17:53:01 CDT Est Patient Exp Problem - 52581 Zayra Shannon D.O. CPT-85766 [facility] 15:01:26 CDT Est Patient Exp Problem - 21165 Zayra Shannon D.O. CPT-62914 [facility] 11:58:22 OWNER CONSULTING ENGINEER Est Patient Exp Problem - 97534 Zayra Shannon D.O. CPT-70512 [facility] 10:26:11 OWNER CONSULTING ENGINEER Est Patient Exp Problem - 25904 Darell Allen MD CPT-73144 [facility] 11:04:10 OWNER CONSULTING ENGINEER Est Patient Exp Problem - 40103 Zayra Shannon D.O. CPT-62879 [facility] 20:02:21 OWNER CONSULTING ENGINEER Est Patient Exp Problem - 38952 Darell Allen MD CPT-25162 [facility] 13:10:07 OWNER CONSULTING ENGINEER Est Patient Exp Problem - 73796 Zayra Shannon D.O. CPT-11819 [facility] 12:06:37 OWNER CONSULTING ENGINEER Est Patient Exp Problem - 39664 Cecily Guerra [facility] CPT-06232 [facility] 12:03:19 CDT Est Patient Exp Problem - 90044 Peterosn Barton MD CPT-11974 [facility] 12:28:59 CDT Est Patient Exp Problem - 19608 Zayra Shannon D.O. CPT-79752 [facility] 00:09:16 CDT Est Patient Exp Problem - 81274 Zayra Shannon D.O. CPT-54314 [facility] 15:42:17 CDT Est Patient Exp Problem - 46798 Zayrahelen Shannon D.O. CPT-41766 [facility] 11:27:45 CDT Est Patient Exp Problem - 48878 Zayra Wise Shiva D.O. CPT-99027 [facility] 11:30:29 CDT Est Patient Exp Problem - 60183 Zayrahelen Shannon D.O. CPT-55619 [facility] 15:21:23 OWNER CONSULTING ENGINEER Est Patient Exp Problem - 33038 Zayra Shannon D.O. CPT-49083 [facility] 14:40:24 CDT Est Patient Exp Problem - 42054 Wanda Horn MD CPT-76601 [facility] 16:30:01 CDT Est Patient Exp Problem - 35685 Zayrahelen Shannon D.O. CPT-40196 [facility] 14:41:04 CDT Est Patient Exp Problem - 49569 Zayra Shannon D.O. CPT-57538 [facility] 09:42:53 CDT Est Patient Detailed - 61818 Zayrahelen Shannon D.O. CPT-13534 [facility] 11:32:03 CDT Est Patient Exp Problem - 05290 Zayra Shannon D.O. CPT-35242 [facility] 16:08:48 CDT Est Patient Exp Problem - 87808 Darell Allen MD CPT-22126 [facility] 16:48:38 CDT Est Patient Exp Problem - 55609 Zayra Shannon D.O. CPT-91379 [facility] 18:00:07 CDT Est Patient Exp Problem - 62585 Zayra Shannon D.O. CPT-16261 [facility] 10:58:16 CDT Est Patient Exp Problem - 54574 Zayra Billie Shannon D.O. CPT-58232 [facility] 16:16:40 OWNER CONSULTING ENGINEER Est Patient Exp Problem - 01787 Zayra Billie Shannon D.O. CPT-80178 [facility] 16:44:19 OWNER CONSULTING ENGINEER Est Patient Exp Problem - 91416 Zayra Wise Ehdaie D.O. CPT-80694 [facility] 15:10:46 OWNER CONSULTING ENGINEER Est Patient Exp Problem - 22503 Darell Allen MD CPT-02958 [facility] 17:24:22 OWNER CONSULTING ENGINEER Est Patient Exp Problem - 55762 Zayra Wise Shiva D.O. CPT-47239 [facility] 14:03:15 CDT Est Patient Exp Problem - 57801 Zayra Billie Troydaie D.O. CPT-81189 [facility] 19:11:21 CDT Est Patient Problem Focus - 99866 Wanda Horn MD CPT-74662 [facility] 14:03:13 CDT Est Patient Exp Problem - 29912 Zayrahelen Shannon D.O. CPT-45157 [facility] 17:56:37 CDT Est Patient Exp Problem - 15769 Zayra Billie Troydaie D.O. CPT-70916 [facility] 18:58:24 CDT Est Patient Exp Problem - 54436 Tanna Parekh MD CPT-05938 [facility] 10:05:50 CDT Est Patient Exp Problem - 91684 Zayra Troydaie D.O. CPT-52531 [facility] 10:58:04 CDT Est Patient Exp Problem - 69458 Zayra Wise Ehdaie D.O. CPT-37423 [facility] 13:22:15 OWNER CONSULTING ENGINEER Est Patient Exp Problem - 76894 Cecily SULTANAP CPT-95540 [facility] 13:56:02 OWNER CONSULTING ENGINEER Est Patient Exp Problem - 87779 Zayra Shannon D.O. CPT-76917 [facility] 16:30:09 OWNER CONSULTING ENGINEER Est Patient Exp Problem - 14940 Zayra Billie Shannon D.O. CPT-71949 [facility] 15:26:08 CDT Est Patient Exp Problem - 63165 Olegario Fatima DO CPT-22114 [facility] 17:32:54 CDT Est Patient Exp Problem - 08351 Zayra Wise Shiva Damon.O. CPT-41392 [facility] 17:17:42 CDT Est Patient Exp Problem - 24370 Zayra Damon.O. CPT-12752 [facility] 12:26:09 CDT Est Patient Detailed - 32522 Tanna Parekh MD CPT-85169 [facility] 14:16:19 CDT Est Patient Exp Problem - 24862 Kelly Gudino MD CPT-20554 [facility] 12:25:26 OWNER CONSULTING ENGINEER Est Patient Exp Problem - 98686 Zayra Damon.O. CPT-22694 [facility] 17:03:21 OWNER CONSULTING ENGINEER Est Patient Exp Problem - 09351 Zayrahelen Shannon D.O. CPT-00108 [facility] 11:07:53 OWNER CONSULTING ENGINEER Est Patient Exp Problem - 01811 Kelly Gudino MD CPT-64421 [facility] 10:26:49 OWNER CONSULTING ENGINEER Est Patient Exp Problem - 70887 Aaron Foy MD CPT-02130 [facility] 14:21:26 OWNER CONSULTING ENGINEER Ofc Vst, Est Level III Nolvia Toney MD CPT-37174 [facility] 12:46:35 CDT Est Patient Detailed - 82640 Zayra Damon.O. CPT-27659 [facility] 15:44:03 CDT Est Patient Detailed - 13594 Jorge L Ramos DO CPT-70912 [facility] 15:46:21 CDT Ofc Vst, Est Level IV Zayra Damon.Jonh. CPT-47455 [facility] 16:38:10 CDT Est Patient Detailed - 33652 Jorge L Ramos DO CPT-27555 [facility] 17:04:06 CDT Ofc Vst, Est Level III Zayra Damon.O. CPT-93350 [facility] 14:44:38 CDT Est Patient Exp Problem - 46824 Meenakshi Zayas MD CPT-34961 [facility] 11:37:44 CDT Est Patient Detailed - 57626 Meenakshi Zayas MD CPT-13043 [facility] 16:57:08 CDT Est Patient Exp Problem - 74358 Darell Allen MD CPT-33260 [facility] 18:15:53 CDT Est Patient Exp Problem - 78545 Zayra Damon.O. CPT-85445 [facility] 20:01:08 CDT Ofc Vst, Est Level III Zayra Damon.John. CPT-70141 [facility] 14:20:12 CDT Ofc Vst, Est Level III Zayra Damon.O. CPT-73313 [facility] 17:31:27 OWNER CONSULTING ENGINEER Ofc Vst, Est Level III Zayra Damon.John. CPT-86012 [facility] 11:03:08 OWNER CONSULTING ENGINEER Est Patient Exp Problem - 91835 Meenakshi Zayas MD CPT-84117 [facility] 18:18:15 OWNER CONSULTING ENGINEER Ofc Vst, Est Level III Zayra Damon.John. CPT-89180 [facility] 12:11:48 OWNER CONSULTING ENGINEER Ofc Vst, Est Level III Zayra Wise Shiva D.O. CPT-59718 [facility] 12:25:34 CDT Est Patient Exp Problem - 50420 Dez Thakkar MD CPT-31738 [facility] 12:28:18 CDT Ofc Vst, Est Level III [facility] Billie Damon.John. CPT-25003 [facility] 20:34:53 CDT Est Patient Exp Problem - 18281 Darell Allen MD CPT-06180 [facility] 11:57:40 CDT Ofc Vst, Est Level III Zayra M Shiva Damon.O. CPT-75570 [facility] Procedures Code Procedure Name Date Entry Date Standard Description CPT-51050 OSTEOPATHIC MANIPULATIVE [place] 3-4 BODY [facility]IONS 17:53:01 CDT CPT-03976 OSTEOPATHIC MANIPULATIVE TX 3-4 BODY [employer]IONS 15:01:25 CDT CPT-00718 OSTEOPATHIC MANIPULATIVE TX 7-8 BODY [employer]IONS 13:03:28 OWNER CONSULTING ENGINEER CPT-96556 Rapid Strep - In House 13:10:07 OWNER CONSULTING ENGINEER CPT-72271 Rapid Flu - In House 13:10:06 OWNER CONSULTING ENGINEER CPT-71664 Urinalysis - Dip only - In House 12:06:38 OWNER CONSULTING ENGINEER CPT-97563 OSTEOPATHIC MANIPULATIVE TX 3-4 [employer] 14:54:42 CDT CPT-22251 OSTEOPATHIC MANIPULATIVE TX 3-4 BODY [employer] 15:42:17 CDT CPT-77893 Pneumovax Vaccine PPSV23 11:27:48 CDT CPT-69726 Diagnostic evaluation (no medical) - 01314 07:32:59 CDT CPT-34734 INFLUENZA VACCINE QUADRIVALENT 3 YRS PLUS IM 16:30:04 CDT CPT-88455 OSTEOPATHIC MANIPULATIVE TX 3-4 BODY [facility]IONS 14:41:05 CDT CPT-88495 Pneumovax Vaccine PPSV23 14:07:04 CDT CPT-58249 INFLUENZA VACCINE QUADRIVALENT 3 YRS PLUS IM 14:03:17 CDT CPT-13791 OSTEOPATHIC MANIPULATIVE TX 7-8 BODY REGIONS 14:40:19 CDT CPT-44276 OSTEOPATHIC MANIPULATIVE TX 9-10 BODY REGIONS 18:39:28 CDT CPT-31482 Prevnar (PCV13) IM 17:56:38 CDT CPT-21722 BLOOD COUNT HEMOGLOBIN 10:18:06 CDT CPT-55559 Rapid Flu - In House 13:22:15 OWNER CONSULTING ENGINEER CPT-40056 Rapid Strep - In House 15:26:09 CDT CPT-91426 Psychotherapy 45 (38-52*) min - 62893 (with patient and/or family member) 14:16:20 CDT CPT-30817 Diagnostic evaluation (no medical) - 90823 15:40:23 CDT CPT-69097 OSTEOPATHIC MANIPULATIVE TX 5-6 BODY [facility]IONS 15:09:28 CDT CPT-03277 OSTEOPATHIC MANIPULATIVE TX 3-4 BODY [facility]IONS 17:17:42 CDT CPT-91049 EKG - Tracing Only 12:12:21 CDT CPT-20689 EKG - Interpretation & Report Only 12:12:21 CDT CPT-89787 Rapid Strep - In House 11:07:53 OWNER CONSULTING ENGINEER CPT-03437 Glucose Stick 10:26:49 OWNER CONSULTING ENGINEER CPT-79998 Influenza - Adult - Injection 15:44:03 CDT CPT-57939 EKG - Interpretation & Report Only 16:38:10 CDT CPT-81318 Influenza - Adult - Injection 15:07:40 OWNER CONSULTING ENGINEER CPT-55211 OSTEOPATHIC MANIPULATIVE TX 1-2 BODY [facility]IONS 17:04:06 CDT CPT-35197 OSTEOPATHIC MANIPULATIVE TX 1-2 B[employer] 20:01:08 CDT
[2019-04-26] MEDS ORDERED: ASPIRIN 81 MG CHEW TAB PO ONE ×2 (13:45→16:15)
[2019-04-26 13:58] LABS: BASOPHILS % 0.5 % (0.0-1.0); EOSINOPHILS # (AUTO) 0.1 (0.0-0.4); EOSINOPHILS % 1.2 % (0.0-6.0); HEMATOCRIT 40.9 % (34.2-44.1); HEMOGLOBIN 13.8 g/dL (12.0-16.0); LYMPHOCYTES # (AUTO) 1.5 (1.0-3.2); LYMPHOCYTES % 25.9 % (18.0-39.1); MEAN CORPUSCULAR HEMOGLOBIN 30.6 pg (28-32); MEAN CORPUSCULAR HGB CONC 33.7 g/dL (31-35); MEAN CORPUSCULAR VOLUME 90.7 fL (81-99); MONOCYTES # (AUTO) 0.5 (0.2-0.8); MONOCYTES % 8.6 % (4.4-11.3); NEUTROPHILS # (AUTO) 3.6 (2.1-6.9); NEUTROPHILS % 63.3 % (38.7-80.0); PLATELET COUNT 152 x10e3/uL (140-360); RED BLOOD COUNT 4.51 x10e6/uL (3.6-5.1); RED CELL DISTRIBUTION WIDTH 12.4 % (11.7-14.4)
[2019-04-26] MEDS ORDERED: ACETAMINOPHEN 325 MG TAB PO ONE (14:00)
[2019-04-26] MEDS ORDERED: NITROGLYCERIN 2% OINT 1 GM PKT TOP ONE (14:00)
[2019-04-26 14:06] LABS: INR 0.94; PROTHROMBIN TIME 13.1 seconds (11.9-14.5)
[2019-04-26 14:07] LABS: PARTIAL THROMBOPLASTIN TIME 28.7 seconds (23.8-35.5)
[2019-04-26 14:14] LABS: ALANINE AMINOTRANSFERASE 17 IU/L (0-55); ALBUMIN 3.6 g/dL (3.5-5.0); ALKALINE PHOSPHATASE 68 IU/L (40-150); BLOOD UREA NITROGEN 22 mg/dL (7-26); BUN/CREATININE RATIO 33 (6-25); CALCIUM 9.1 mg/dL (8.4-10.2); CARBON DIOXIDE 26 mmol/L (22-29); CHLORIDE 102 mmol/L (98-107); CREATINE KINASE 107 IU/L (29-168); CREATININE, SERUM 0.66 mg/dL (0.57-1.11); EST GLOMERULAR FILTRATION RATE > 60 ML/MIN (60-); GLUCOSE 152 mg/dL (74-118); SODIUM 138 mmol/L (136-145)
--- NOTE | 2019-04-26 14:24 | NUR ---
Carlotta gonzalez in ED - 04/26/19 at 1425 by SAYRA pt c/o pain to iv site in right ac; iv d/c and restarted in left ac 20 gauge
--- NOTE | 2019-04-26 14:25 | NUR ---
pt c/o pain to iv site in right ac; iv line d/c and restarted in left ac 18 gauge
[2019-04-26] MEDS ORDERED: FAMOTIDINE 20 MG/2 ML VIAL IV ONE (14:30)
[2019-04-26 14:38] LABS: BILIRUBIN,URINE NEGATIVE (NEGATIVE); CLARITY,URINE SL CLOUDY (CLEAR); COLOR,URINE YELLOW (YELLOW); KETONES,URINE NEGATIVE (NEGATIVE); LEUKOCYTE ESTERASE ,URINE NEGATIVE (NEGATIVE); NITRITE,URINE NEGATIVE (NEGATIVE); PROTEIN,URINE DIPSTICK NEGATIVE (NEGATIVE); URINE UROBILINOGEN 0.2 mg/dL (0.2 - 1)
[2019-04-26 14:59] LABS: BACTERIA,URINE MODERATE /HPF; WBC,URINE (MAN) 0-5 /HPF (0-5)
[2019-04-26 15:00] LABS: EPITHELIAL CELLS,URINE FEW /LPF; MUCUS,URINE MODERATE (RARE)
--- NOTE | 2019-04-26 15:40 | Diagnostic Imaging Report ---
EXAMINATION: CHEST SINGLE (PORTABLE) INDICATION: Chest pain COMPARISON: None FINDINGS: TUBES and LINES: EKG leads overlie the chest. LUNGS: The lungs are moderately inflated. No focal consolidation or pulmonary edema. PLEURA: No pleural effusion or pneumothorax. HEART AND MEDIASTINUM: The heart is at the upper limits of normal for size. BONES AND SOFT TISSUES: No acute fracture or dislocation. UPPER ABDOMEN: No free air under the diaphragm. IMPRESSION: No focal pneumonia or pulmonary edema. Signed by: Olivia Lozano MD on 04/26/2019 3:37 PM
[2019-04-26] MEDS ORDERED: ACETAMINOPHEN 325 MG TAB PO PRN (16:15)
[2019-04-26] MEDS ORDERED: ENALAPRILAT IV INJ 1.25 MG/ML VIAL IV PRN (16:15)
[2019-04-26] MEDS ORDERED: DIPHENHYDRAMINE HCL INJ 50 MG/ML VIAL IV PRN (16:15)
[2019-04-26] MEDS ORDERED: ENOXAPARIN SODIUM INJ 100 MG/ML SYR SC ONE (16:15)
[2019-04-26] MEDS: FAMOTIDINE 20 MG/2 ML VIAL IV SCH (16:28)
[2019-04-26] MEDS: NITROGLYCERIN 2% OINT 1 GM PKT TOP SCH (17:46)
[2019-04-26 19:32] LABS: CHOL/HDL RATIO 4.2 (3.0-3.6)
[2019-04-26] MEDS ORDERED: MORPHINE SULFATE 2 MG/ML SYR 1ML IV NR (20:15)
--- NOTE | 2019-04-26 20:39 | NUR ---
PATIENT REQUESTED TO HAVE NITRO PATCH REMOVED.
[2019-04-26] MEDS: SIMVASTATIN 40 MG TAB PO SCH (20:51)
[2019-04-26] MEDS ORDERED: ZOLPIDEM TARTRATE 5 MG TAB PO PRN (21:00)
--- NOTE | 2019-04-26 21:17 | NUR ---
dr estefany rdz
--- NOTE | 2019-04-26 21:25 | NUR ---
dr estefany rdz
[2019-04-26] MEDS ORDERED: HYDRALAZINE HCL 20 MG/ML VIAL IV PRN (22:00)
--- NOTE | 2019-04-26 22:03 | NUR ---
dr corcoran informed of patients current bp, informed of second set of cardiac enzymes and patients elevated bp, informed of patients nitro request to remove due to severe headache
--- NOTE | 2019-04-26 22:04 | NUR ---
spoke to dr misha corcoran, given orders for 10mg iv hydralazine x4plvtd prn for sbp above 180, and 50mg po hydralazine q 6 hours po for sbp above 120 Addendum: 04/26/19 at 2206 by ACANO telephone orders read back
[2019-04-26] MEDS: HYDRALAZINE HCL 25 MG TAB PO SCH (22:18)
[2019-04-26] MEDS ORDERED: HYDRALAZINE HCL 25 MG TAB ONE (22:20)
[2019-04-26] MEDS ORDERED: TRAVATAN Z5 ML OP (22:32)
[2019-04-26] MEDS ORDERED: PULMICORT FLEXHA1 EA (22:32)
[2019-04-26] MEDS ORDERED: LATUDA40 MG PO (22:32)
[2019-04-26] MEDS ORDERED: DICYCLOMINE HCL10 MG PO (22:32)
[2019-04-26 23:10] VITALS: BP 175/74
--- NOTE | 2019-04-26 23:10 | NUR ---
patient is a new admit that arrived via stretcher. patient is awake and talking. patient has been assisted into the bed. bed is in the lowest position and call albright is within reach. will continue to monitor patient.
[2019-04-27] VITALS (8 sets, daily range): BP systolic 106–184; BP diastolic 56–82
[2019-04-27] MEDS ORDERED: NATEGLINIDE60 MG PO (01:35)
[2019-04-27] MEDS ORDERED: LATUDA40 MG PO (01:36)
[2019-04-27] MEDS ORDERED: NEXIUM40 MG PO (01:36)
[2019-04-27] MEDS ORDERED: januvia PO (01:36)
--- NOTE | 2019-04-27 01:43 | Consultation ---
DATE OF CONSULTATION: 04/26/2019 Cardiology Consultation. REQUESTING PHYSICIAN: Dr. Gay. REASON FOR CONSULTATION: Chest pain. HISTORY OF PRESENT ILLNESS: This is a 63-year-old woman with history of hypertension, hyperlipidemia, diabetes mellitus, coronary artery disease, status post myocardial infarction and CVA, who presents with complaints of chest pain. The patient normally sees Dr. Small as an outpatient for her cardiac care, however, she presented for preregistration for her endoscopy with Dr. Oliveira and reported that she had been having chest pain for the last week. She states this chest pain is a stabbing and twisting sensation, 8/10 in severity, radiating down to the left arm. It is worse with deep inspiration and better with nitroglycerin. The pain has been constant since onset, associated with nausea and shortness of breath. REVIEW OF SYSTEMS: 12-point review of systems was performed and is negative except as per HPI. PAST MEDICAL HISTORY: 1. Hypertension. 2. Hyperlipidemia. 3. Diabetes mellitus. 4. Coronary artery disease, status post myocardial infarction. 5. CVA. PAST SURGICAL HISTORY: 1. Back surgery. 2. section x3. 3. Appendectomy. 4. Hysterectomy. 5. Craniotomy. ALLERGIES: PLEASE SEE EMR. MEDICATIONS: Please see medication list. SOCIAL HISTORY: Denies tobacco, alcohol, or illicit drugs. FAMILY HISTORY: Denies heart disease in the immediate family. PHYSICAL EXAMINATION: VITAL SIGNS: Temperature 98.1 degrees, pulse 51, respiratory rate 18, blood pressure 163/74, and oxygen saturation 98% on room air. GENERAL: Well-developed and well-nourished woman, in no acute distress. HEENT: Normocephalic and atraumatic. Pupils are equal. No scleral icterus. NECK: Supple. No thyroid or cervical lymphadenopathy. No carotid bruits. LUNGS: Clear to auscultation bilaterally. No wheeze or crackles. CARDIOVASCULAR: Normal rate. Regular rhythm. No murmur. Normal S1 and S2. ABDOMEN: Soft and nontender. EXTREMITIES: No edema. NEUROLOGIC: Nonfocal exam. LABORATORY DATA: WBC 5.72, hemoglobin 13.8, hematocrit 40.9, and platelets 152. Sodium 138, potassium 4, chloride 102, CO2 of 26, BUN 22, creatinine 0.66. BNP 107.5. EKG, sinus bradycardia, T-wave abnormality, consider lateral ischemia. IMPRESSION: 1. Chest pain. 2. Coronary artery disease status post prior myocardial infarction. 3. History of cerebrovascular accident. 4. Hypertension. 5. Hyperlipidemia. 6. Diabetes mellitus. RECOMMENDATIONS: Trend cardiac enzymes to rule out myocardial infarction. Check D-dimer as well as CRP as certain characteristics of the patient's chest pain description are not consistent with ACS. Obtain echocardiogram, obtain fasting lipid panel. The patient indicates that she had a normal nuclear stress test [address] Small. We will attempt to obtain records. If this is unsuccessful, we will proceed with pharmacologic stress test for further evaluation given her new onset of chest pain. Thank you for this consult. We will continue to follow. Larissa Fox MD ABS/MODL /[id number]
[2019-04-27 05:42] LABS: CREATINE KINASE MB 1.6 ng/mL (0-5.0)
[2019-04-27] MEDS: NITROGLYCERIN 2% OINT 1 GM PKT TOP SCH ×4 (06:00→17:50)
[2019-04-27 06:01] LABS: CHOL/HDL RATIO 5.8 (3.0-3.6); CHOLESTEROL 163 MD/DL (0-199); HDL CHOLESTEROL 28 MG/DL (40-60); TRIGLYCERIDES 475 MG/DL (0-149)
[2019-04-27] MEDS: HYDRALAZINE HCL 25 MG TAB PO SCH ×3 (06:05→17:49)
--- NOTE | 2019-04-27 07:07 | NUR ---
Walking rounds done and report received. Patient is awake, alert x3 and able to make needs known. Daughter at bedside. POC. Tele#[phone], [phone]. She was instructed to call for assistance as needed and verbalized understanding. Call albright within reach.
[2019-04-27] MEDS: FAMOTIDINE 20 MG/2 ML VIAL IV SCH ×2 (08:56→16:29)
--- NOTE | 2019-04-27 09:25 | NUR ---
Dr. Rhoades paged to continue home medications. Awaiting call back
[2019-04-27] MEDS ORDERED: HYDROCODONE/APAP 10MG-325MG TAB PO PRN (10:45)
[2019-04-27] MEDS ORDERED: FENTANYL 50 MCG/HR PATCH TOP SCH ×2 (10:45→11:00)
[2019-04-27] MEDS ORDERED: LORAZEPAM 1 MG TAB PO PRN (10:45)
[2019-04-27] MEDS: ISOSORBIDE MONONITRATE 30 MG TAB CR PO SCH (11:16)
[2019-04-27] MEDS: NIFEDIPINE CR 30 MG TAB PO SCH (11:17)
--- NOTE | 2019-04-27 11:30 | Progress Note ---
DATE: 04/27/2019 Cardiology Progress Note SUBJECTIVE: The patient continues to report chest pain. She also states she is anxious and is having significant social stressors. She denies any shortness of breath. OBJECTIVE: VITAL SIGNS: Temperature 98.8 degrees, pulse 65, respiratory rate 19, blood pressure 184/80, oxygen saturation 98% on room air. GENERAL: Awake, alert, in no acute distress. LUNGS: Clear to auscultation bilaterally. No wheezes or crackles. CARDIOVASCULAR: Normal rate. Regular rhythm. No murmur. Normal S1, S2. ABDOMEN: Soft, nontender. EXTREMITIES: No edema. CARDIAC MEDICATIONS: Hydralazine 50 mg p.o. q.6 hours, simvastatin 40 mg p.o. at bedtime, nifedipine 60 mg p.o. daily, metoprolol succinate 50 mg p.o. daily, isosorbide mononitrate 60 mg p.o. daily. LABORATORY DATA: Troponin 0.017. TELEMETRY: Normal sinus rhythm. IMPRESSION: 1. Chest pain. 2. Coronary artery disease, status post prior myocardial infarction. 3. History of cerebrovascular accident. 4. Hypertension. 5. Hyperlipidemia. 6. Diabetes mellitus. RECOMMENDATIONS: No evidence of myocardial infarction on serial cardiac biomarkers. CRP is pending. D-dimer was within the normal range. Resume her home cardiac medications. If she is chest pain-free and her echo was unremarkable, she may be discharged home for further evaluation with Dr. Small. However, if she continues to have chest pain, we will need to proceed with an ischemic evaluation before discharge. Thank you for this consult. We will continue to follow. Larissa Fox MD ABS/MODL /[id number]
[2019-04-27] MEDS: DICYCLOMINE HCL 10 MG CAP PO SCH ×3 (12:16→21:48)
--- NOTE | 2019-04-27 13:50 | NUR ---
Visit made by the Spiritual Care Department Pastoral Visitor, Korina Lemon. PV provided pastoral presence, hospitality, and supportive listening. Pastoral Visitor informed pt/family of the scope of Quantitative Manager Services and availability. MATT [employer] Supervisor Spiritual Care Department O: [phone] Pager: [phone] ([phone] number calling from)
[2019-04-27] MEDS: NATEGLINIDE 120 MG TAB PO SCH ×2 (14:26→21:47)
[2019-04-27] MEDS: GABAPENTIN 400 MG CAP PO SCH ×2 (14:26→21:47)
[2019-04-27] MEDS: BACLOFEN 10 MG TAB PO SCH ×2 (14:26→21:47)
[2019-04-27 14:31] LABS: CREATINE KINASE MB 1.3 ng/mL (0-5.0)
[2019-04-27] MEDS ORDERED: NON-FORMULARY MEDICATION (Nateglinide 60 MG) PO SCH (15:00)
[2019-04-27] MEDS ORDERED: DEXTROSE 50% SYRINGE 50 ML IV PRN (16:00)
[2019-04-27] MEDS: PANTOPRAZOLE SOD 40 MG TABEC PO SCH (16:30)
[2019-04-27] MEDS: RENEXA PO SCH (16:30)
[2019-04-27] MEDS: INSULIN REGULAR, HUMAN 100 UNIT/1 ML 3ML VIAL SQ SCH ×2 (16:30→21:49)
[2019-04-27] MEDS: METOPROLOL SUCCINATE 50 MG TAB XL PO SCH (16:30)
[2019-04-27] MEDS ORDERED: RENEXA PO SCH (17:00)
--- NOTE | 2019-04-27 19:03 | NUR ---
RECEIVED REPORT FROM PREVIOUS NURSE. PATIENT IN BED. CALL LIGHT WITHIN REACH. DAUGHTER AT BEDSIDE
--- NOTE | 2019-04-27 19:18 | NUR ---
Walking rounds done and report given. Call albright within reach.
[2019-04-27] MEDS ORDERED: TRAVOPROST(OPTH) 2.5 ML BTL OP SCH (21:00)
[2019-04-27] MEDS ORDERED: INSULIN GLARGINE SQ SCH (21:00)
[2019-04-27] MEDS: BUDESONIDE 180MCG TUBUHALER INH SCH (21:15)
[2019-04-27] MEDS: SIMVASTATIN 40 MG TAB PO SCH (21:47)
[2019-04-27] MEDS: INSULIN GLARGINE SQ SCH (21:48)
[2019-04-28] VITALS: BP 103/50
[2019-04-28 04:00] VITALS: BP 120/58
[2019-04-28] MEDS: NITROGLYCERIN 2% OINT 1 GM PKT TOP SCH ×4 (06:00→17:04)
[2019-04-28] MEDS: BUDESONIDE 180MCG TUBUHALER INH SCH (06:20)
[2019-04-28] MEDS: HYDRALAZINE HCL 25 MG TAB PO SCH ×4 (06:20→17:13)
--- NOTE | 2019-04-28 06:55 | NUR ---
Gave report to oncoming nurse. Call light within reach. Patient in bed.
--- NOTE | 2019-04-28 07:08 | NUR ---
RECEIVED PATIENT AWAKE RESTING IN BED. NO SIGNS OF DISTRESS. BED LOW, WHEELS LOCKED, SIDE RAILS X2. CALL LIGHT IN REACH. WILL CONTINUE TO MONITOR PATIENT.
[2019-04-28] MEDS: INSULIN GLARGINE SQ SCH (07:11)
[2019-04-28] MEDS: DICYCLOMINE HCL 10 MG CAP PO SCH ×3 (07:28→17:13)
[2019-04-28] MEDS: BACLOFEN 10 MG TAB PO SCH ×2 (07:28→14:17)
[2019-04-28] MEDS: GABAPENTIN 400 MG CAP PO SCH ×2 (07:29→14:17)
[2019-04-28] MEDS: PANTOPRAZOLE SOD 40 MG TABEC PO SCH ×2 (07:29→17:13)
[2019-04-28] MEDS: RENEXA PO SCH ×2 (07:29→16:03)
[2019-04-28] MEDS: INSULIN REGULAR, HUMAN 100 UNIT/1 ML 3ML VIAL SQ SCH ×3 (07:29→17:18)
[2019-04-28] MEDS: NATEGLINIDE 120 MG TAB PO SCH ×2 (07:29→14:17)
[2019-04-28] MEDS: ISOSORBIDE MONONITRATE 30 MG TAB CR PO SCH (07:31)
[2019-04-28] MEDS: METOPROLOL SUCCINATE 50 MG TAB XL PO SCH (07:33)
[2019-04-28 07:53] VITALS: BP 165/73
[2019-04-28 07:59] VITALS: BP 165/73
[2019-04-28] MEDS: NIFEDIPINE CR 30 MG TAB PO SCH (08:22)
[2019-04-28] MEDS: FAMOTIDINE 20 MG/2 ML VIAL IV SCH ×2 (08:22→17:13)
[2019-04-28] MEDS ORDERED: NON-FORMULARY MEDICATION (Lurasidone Hcl (Latuda) 40 MG) PO SCH ×2 (09:00)
[2019-04-28] MEDS ORDERED: SITAGLIPTIN 100 MG TAB PO SCH (09:00)
[2019-04-28] MEDS ORDERED: TRINTELLEX PO SCH ×2 (09:00)
--- NOTE | 2019-04-28 09:14 | NUR ---
PATIENT A/O X3, EVEN RESPIRATIONS ON RA. BOWEL SOUNDS ACTIVE, SKIN INTACT, NO EDEMA. LEFT AC 18 GAUGE IV SL. IV INTACT/PATENT. TELEMETRY #4 SB @ 57. PATIENT NPO FOR STRESS TEST TODAY. NO CHEST PAIN AT THIS TIME. CALL LIGHT IN REACH, DAUGHTER AT BEDSIDE. WILL CONTINUE TO MONITOR PATIENT.
--- NOTE | 2019-04-28 10:43 | NUR ---
PATIENT LEFT FOR STRESS TEST AT THIS TIME VIA WHEELCHAIR.
[2019-04-28] MEDS ORDERED: REGADENOSON 0.4 MG/5 ML SYR IV ONE (11:06)
[2019-04-28] MEDS ORDERED: ONDANSETRON HCL INJ 2MG/ML 2ML 2 MG/ML VIAL ONE (11:37)
--- NOTE | 2019-04-28 12:42 | NUR ---
PATIENT BACK FROM STRESS TEST AT THIS TIME.
[2019-04-28 12:50] VITALS: BP 141/65
--- NOTE | 2019-04-28 15:53 | Myoview Stress Test ---
DATE OF STUDY: 04/27/2019 17:54:00 Stress Test - Treadmill ONLY PROCEDURE TITLE: Rest/stress single isotope SPECT imaging with pharmacologic stress and gated SPECT imaging. INDICATION: Chest pain. PROCEDURE IN DETAIL: Pharmacologic stress testing was performed with regadenoson per protocol. The heart rate was 60 beats per minute at rest and increased to 108 beats per minute during the regadenoson infusion. The rest blood pressure was 147/78 mmHg and decreased to 105/68 mmHg, which is a normal response. The resting electrocardiogram demonstrated normal sinus rhythm. There were no ST-segment changes suggestive of myocardial ischemia. Myocardial perfusion imaging was performed at rest following the injection of 11 mCi of sestamibi. At peak pharmacologic effect, the patient was injected with 33 mCi of sestamibi. Gated post-stress tomographic imaging was performed. FINDINGS: Overall quality of study is fair. Left ventricular cavity is noted be of normal size on the rest and stress studies. SPECT images demonstrate homogeneous tracer distribution throughout the myocardium. Gated SPECT imaging reveals normal myocardial thickening and wall motion. The left ventricular ejection fraction was calculated to be 62%. IMPRESSION: Myocardial perfusion imaging is normal. Overall, left ventricular systolic function was normal without regional wall motion abnormalities. Larissa Fox MD ABS/MODL /[id number]
[2019-04-28 15:55] VITALS: BP 143/64
--- NOTE | 2019-04-28 17:28 | NUR ---
REMOVED PATIENTS IV. CATHETER TIP INTACT AND PRESSURE DRESSING APPLIED.
--- NOTE | 2019-04-28 17:35 | NUR ---
PATIENT DISCHARGED FROM FACILITY. PATIENT GATHERED ALL PERSONAL BELONGINGS, DISCHARGE INSTRUCTIONS, AND FOLLOW UP INFORMATION. LEFT UNIT IN WHEELCHAIR AND WENT HOME VIA PRIVATE AUTO. NO SIGNS OF DISTRESS WHEN LEAVING FACILITY.
--- NOTE | 2019-04-28 19:08 | Progress Note ---
DATE: 04/28/2019 Cardiology Progress Note SUBJECTIVE: The patient denies chest pain or shortness of breath. She had a nuclear stress test today. OBJECTIVE: VITAL SIGNS: Temperature 97.6 degrees, pulse 61, respiratory rate 18, blood pressure 143/64, and oxygen saturation 94% on room air. GENERAL: Awake, alert, in no acute distress. LUNGS: Clear to auscultation bilaterally. No wheezes or crackles. CARDIOVASCULAR: Normal rate. Regular rhythm. No murmur. Normal S1 and S2. ABDOMEN: Soft and nontender. EXTREMITIES: No edema. CARDIAC MEDICATIONS: 1. Hydralazine 50 mg p.o. q.6 hours. 2. Nifedipine 60 mg p.o. daily. 3. Simvastatin 40 mg p.o. at bedtime. 4. Ranexa 1000 mg p.o. b.i.d. 5. Metoprolol succinate 50 mg p.o. daily. 6. Isosorbide mononitrate 60 mg p.o. daily. LABORATORY DATA: None today. TELEMETRY: Normal sinus rhythm. IMPRESSION: 1. Chest pain. 2. Coronary artery disease, status post prior myocardial infarction. 3. History of cerebrovascular accident. 4. Hypertension. 5. Hyperlipidemia. 6. Diabetes mellitus. RECOMMENDATIONS: No evidence of myocardial infarction on serial cardiac biomarkers. Nuclear stress test was without evidence of ischemia. The patient's chest pain has resolved. No further cardiac evaluation is indicated at this time. Continue current cardiac medications. Thank you for this consult. We will continue to follow. Larissa Fox MD [facility] /[id number]
== END 2019-04-28 17:38 | disposition home or self-care (01) ==
LOC: ER 13:24 → ERHOLD 16:05 → IMCU 23:25
DX: I25.110 Atherosclerotic heart disease of native coronary artery with unstable angina pectoris (principal); E11.9 Type 2 diabetes mellitus without complications; I10 Essential (primary) hypertension; K21.9 Gastro-esophageal reflux disease without esophagitis; E78.5 Hyperlipidemia, unspecified; Z86.73 Personal history of transient ischemic attack (TIA), and cerebral infarction without residual deficits; I25.2 Old myocardial infarction
CPT/HCPCS: 36415 ×3; 71045; 78452; 80053; 80061 ×2; 81001; 82550 ×2; 82553 ×2; 82948 ×2; 83880; 84484 ×2; 85025; 85379; 85610; 85730; 86140; 87086; 93005; 93017; 93306; 94664; 99284; A9500; G0378 ×3; J0360; J1650; J1817; J2270; J2405; J2785; S0164 ×2